=== PATIENT | female | born 1955 | race Caucasian/White ===

== ENCOUNTER → 2016-12-30 | Outpatient (CLI) | payer BC ==
--- NOTE | 2016-12-30 18:38 | WOMENS IMAGING REPORT ---
EXAM DESCRIPTION: BILAT SCREENING MAMMO W/CAD COMPLETED DATE/TIME: 12/30/2016 8:08 am REASON FOR STUDY: Z12.31, ROUTINE SCREENING MAMMO Z12.31 ENCNTR SCREEN MAMMOGRAM FOR MALIGNANT NEOP LASM OF VERA COMPARISON: Multiple since 2008 TECHNIQUE: Standard craniocaudal and mediolateral oblique views of each breast recorded using digita l acquisition. LIMITATIONS: None. FINDINGS: Findings present which are benign by mammographic criteria. No suspicious masses, calcifi cations or architectural distortion. Pertinent benign findings: Bilateral benign breast and skin calcifications, left breast benign intram ammary lymph nodes Read with the assistance of CAD. .[facility] - R2 [employer] Version 1.3 .[facility] - R2 Cen[employer] Version 1.3 .[facility] - R2 Cenova Version 2.4 .[facility] [place] R2 Cenova Version 2.4 .[facility] - R2 [employer] Version 9.2 Benign mammographic findings may include one or more of the following: Smooth masses, popcorn/rim/co arse calcifications, asymmetries, post-procedure changes, and lesions with long-standing stability. IMPRESSION: BENIGN MAMMOGRAPHIC FINDINGS. BIRADS 2 BREAST DENSITY: b. There are scattered areas of fibroglandular density. BIRAD: 2 BENIGN FINDING(S) RECOMMENDATION: ROUTINE SCREENING Please consider bilateral screening tomosynthesis in December 2017 COMMENT: The patient has been notified of the results by letter per MQSA requirements. Additional no tification policies are in place for contacting patient with suspicious or incomplete findings. Quality ID #[id number]: The [employer] recommends an annual screening mammogram for women aged 40 years or over. This facility utilizes a reminder system to ensure that all patients receive reminder letters, and/or direct phone calls for appointments. This includes reminders for routine scr eening mammograms, diagnostic mammograms, or other Breast Imaging Interventions when appropriate. Th is patient will be placed in the appropriate reminder system. The [employer] (ACR) has developed recommendations for screening MRI of the breast s in certain patient populations, to be used in conjunction with mammography. Breast MRI surveillanc e may be appropriate for women with more than 20% lifetime risk of developing breast cancer as deter mined by genetic testing, significant family history of the disease, or history of mantle radiation f or Hodgkins Disease. ACR Practice Guidelines 2008. TECHNICAL DOCUMENTATION: FINDING NUMBER: (1) ASSESSMENT: (1) JOB ID: [id number] [facility]- All Rights Reserved
== END ==
LOC: WI 09:48
PROVIDERS: ATTEND Specialist
DX: Z12.31 Encounter for screening mammogram for malignant neoplasm of breast (principal)
CPT/HCPCS: 77067; G0202

== ENCOUNTER 2017-05-23 06:41 | Emergency (ER) | payer BC ==
--- NOTE | 2017-05-23 07:00 | ER Document Report ---
ED GI/ - General Chief Complaint: Flank Pain Stated Complaint: FLANK PAIN Time Seen by Provider: 05/23/17 06:54 TRAVEL OUTSIDE OF THE [place] IN LAST 30 DAYS: No - HPI Notes: 05/23/17 07:00 62 years old female with a history of diabetes hypertension, presents today with left flank pain woke her up around 2:00 this morning. It was 10/10 at that time. Now it is 3/10. The pain was radiating towards the groin. Not associated with any nausea vomiting denies any hematuria or dysuria frequency urgency. Denies any constipation. Denies any fever chills or other constitutional symptoms. - Related Data Allergies/Adverse Reactions: No Known Allergies Allergy (Verified 05/23/17 06:41) Past Medical History - General Information source: Patient - Social History Smoking Status: Former Smoker Frequency of alcohol use: Rare Drug Abuse: None Lives with: Family Family History: Reviewed & Not Pertinent Patient has suicidal ideation: No - Past Medical History Cardiac Medical History: Reports: Hx Hypertension Pulmonary Medical History: Reports: None Denies: Hx Asthma, Hx Bronchitis, Hx COPD, Hx Pneumonia, Hx Intubation, Hx Respiratory Failure, Hx Sleep Apnea, Hx Tuberculosis, Other EENT Medical History: Reports: None Denies: Eyes, Ears, Nose, Throat, Other Neurological Medical History: Reports: None. Denies: Hx Cerebrovascular Accident, Hx Migraine, Hx Seizures, Other Endocrine Medical History: Reports: Hx Diabetes Mellitus Type 2. Denies: None, Hx Diabetes Mellitus Type 1, Hx Graves' Disease, Hx Hyperthyroidism, Hx Hypothyroidism, Other Renal/ Medical History: Reports: Other - Ovarian cancer 1992. Denies: None, Hx Ectopic , Hx End Stage Renal Disease, Hx Hemodialysis, Hx Hydrocele , Hx Kidney Stones, Hx Ovarian Cysts, Hx Peritoneal Dialysis, Hx Pelvic Inflammatory Disease, Hx Renal Insufficiency, Hx Varicocele Malignancy Medical History: Reports: Hx Ovarian Cancer, Hx Skin Cancer. Denies : None, Hx Bone Cancer, Hx Brain Cancer, Hx Breast Cancer, Hx Cervical Cancer, Hx Colorectal Cancer, Hx Leukemia, Hx Liver Cancer, Hx Lung Cancer, Hx Lymphoma , Hx Pancreatic Cancer, Hx Renal (Kidney) Cancer, Other GI Medical History: Reports: None. Denies: Hx Cirrhosis, Hx Crohn's Disease, Hx Diverticulitis, Hx Gastritis, Hx Gastroesophageal Reflux Disease, Hx Hepatitis, Hx Hiatal Hernia, Hx Irritable Bowel, Hx Liver Failure, Hx Pancreatitis, Hx Ulcer, Hx Ulcerative Colitis, Hx Colonoscopy, Hx Endoscopic Retrograde Cholangio, Hx Endoscopy, Other Musculoskeltal Medical History: Reports None Psychiatric Medical History: Reports: None Denies: Hx Anxiety, Hx Attention Deficit Hyperactivity Disorder, Hx Bipolar Disorder, Hx Borderline Personality Disorder, Hx Dementia, Hx Depression, Hx Obsessive Compulsive Disorder, Hx Personality Disorder, Hx Post Traumatic Stress Disorder, Hx Schizoaffective Disorder, Hx Schizophrenia, Other Past Surgical History: Reports: Hx Cholecystectomy, Hx Hysterectomy, Other - Oophorectomy Review of Systems - Review of Systems Constitutional: No symptoms reported. denies: See HPI, Chills, Diaphoresis, Fever, Malaise, Weakness, Other, Weight gain, Weight loss, Recent illness EENT: No symptoms reported. denies: See HPI, Eye pain, Eye discharge, Blurred vision, Tearing, Double vision, Ear pain, Ear discharge, Nose pain, Nose congestion, Nose discharge, Sinus pressure, Sinus discharge, Throat pain, Difficulty swallowing, Throat swelling, Mouth pain, Mouth swelling, Dental problem, Vertigo, Other Cardiovascular: No symptoms reported. denies: See HPI, Chest pain, Palpitations , Heart racing, Orthopnea, Dyspnea, Syncope, Dizziness, Lightheaded, Edema, Other, Paroxysmal Nocturnal Dysp Respiratory: No symptoms reported. denies: See HPI, Cough, Hurts to breathe, Hemoptysis, Short of breath, Sputum, Stridor, Wheezing, Other Gastrointestinal: See HPI Genitourinary: See HPI Female Genitourinary: No symptoms reported. denies: See HPI, Last menstrual period, , Post menopausal, Heavy/abnormal periods, Irregular period, Vaginal discharge, Vaginal bleeding, Vaginal odor, Painful intercourse, Other Neurological/Psychological: No symptoms reported. denies: See HPI, Confusion, Dementia, Depression, Hallucinations, Anxiety, Homicidal ideation, Sensory change, Weakness, Gait changes, Loss of power, Paralysis, Seizure, Lost consciousness, Headaches, Speech impairment, Numbness, Suicidal ideation, Tingling, Tremor, Other Physical Exam - Vital signs Vitals: Temp Pulse Resp BP Pulse Ox 98.1 F 83 18 134/80 H 95 05/23/17 06:42 05/23/17 06:42 05/23/17 06:42 05/23/17 06:42 05/23/17 06:42 - Notes Notes: General exam: Alert oriented 3, appears well, not in any acute distress, body habitus--- obesity ---. HEENT: Normocephalic atraumatic pupils were equal reactive to light extraocular muscles were within normal range. Neck is supple no JVD no lymphadenopathy. Oral mucosa-not erythematous, no lesions noted no tonsillar enlargement. Chest no lesions, nontraumatic, nontender. No deformity Lungs: Bilaterally clear breath sounds no rales or wheezing, no adventitial sounds, no dullness on percussion. Cardiovascular system: Normal S1-S2 no murmurs, no gallop. Regular rhythm. N peripheral edema over the lower extremities. Gastrointestinal: Left flank tenderness on palpation Normal appearance, positive bowel sounds in all 4 quadrants, no Hepatosplenomegaly, no obvious masses, no obvious abdominal bruit. No horseshoe dullness. Inguinal region: No masses or obvious inguinal hernia noted Genitourinary: Rectal exam: Nervous system: Alert oriented 3, no cranial nerve weakness, no focal neurological deficit noted. Sensation is intact over the lower extremities for pain and touch. Reflexes are 2+ over both patella. Upper extremities: No trauma as noted, normal range of motion for both shoulders, elbows and wrist. Lower extremity: No traumas or deformities noted, normal range of motion for flexion extension abduction abduction of both hip joints, Normal flexion and extension of knee joint. Normal range of motion for plantarflexion dorsiflexion and eversion inversion for both ankles. Skin: No erythema, no edema, no obvious lesions noted Course - Vital Signs Vital signs: Temp Pulse Resp BP Pulse Ox 98.1 F 83 18 134/80 H 95 05/23/17 06:42 05/23/17 06:42 05/23/17 06:42 05/23/17 06:42 05/23/17 06:42
[2017-05-23] MEDS ORDERED: KETOROLAC TROMETHAMINE INJ/PF 30 MG/1 ML SDV IV ONE (07:08)
[2017-05-23] MEDS ORDERED: NORMAL SALINE 1000 ML 1,000 ML IV ONE (07:09)
[2017-05-23] MEDS ORDERED: NORMAL SALINE 500 ML IV ONE (07:09)
[2017-05-23 07:19] LABS: HEMATOCRIT 39.6 % (36.0-47.0); HEMOGLOBIN 13.4 g/dL (12.0-15.5); HGB HCT DIFFERENCE 0.6; MEAN CORPUSCULAR HEMOGLOBIN 30.2 pg (27.0-33.4); MEAN CORPUSCULAR HGB CONC 33.8 g/dL (32.0-36.0); MEAN CORPUSCULAR VOLUME 89 fl (80-97); RED BLOOD COUNT 4.43 10^6/uL (3.72-5.28); RED CELL DISTRIBUTION WIDTH 12.9 % (11.5-14.0); WHITE BLOOD COUNT 14.2 10^3/uL (4.0-10.5)
[2017-05-23 07:42] LABS: ABSOLUTE EOSINOPHILS# (MANUAL) 0.1 10^3/uL (0.0-0.6); BAND NEUTROPHILS % (MANUAL) 1 % (3-5); BASOPHILS % (MANUAL) 1 % (0-2); EOSINOPHILS % (MANUAL) 1 % (0-6); LYMPHOCYTES % (MANUAL) 1 % (13-45); TOTAL CELLS COUNTED 100
[2017-05-23 07:43] LABS: RBC MORPHOLOGY COMMENT NORMO-CYTIC/CHROMIC
--- NOTE | 2017-05-23 08:25 | RADIOLOGY REPORT (SQ) ---
EXAM DESCRIPTION: CT LTD RENAL STONE PROTOCOL ON COMPLETED DATE/TIME: 05/23/2017 7:54 am REASON FOR STUDY: Flank pain rule out kidney stone COMPARISON: None. TECHNIQUE: CT scan of the abdomen and pelvis performed without intravenous or oral contrast. Images reviewed with lung, soft tissue, and bone windows. Reconstructed coronal and sagittal MPR images revi ewed. All images stored on PACS. All CT scanners at this facility use dose modulation, iterative reconstruction, and/or weight based d osing when appropriate to reduce radiation dose to as low as reasonably achievable (ALARA). [facility]: Dose Right [facility]: CareDose [facility]: Dose Right [facility]: Teradose 4D [facility]: Smart [employer] RADIATION DOSE: CT Rad equipment meets quality standard of care and radiation dose reduction techniq ues were employed. CTDIvol: 17.1 mGy. DLP: 931 mGy-cm.mGy. LIMITATIONS: None. FINDINGS: LOWER CHEST: No significant findings. No nodules or infiltrates. Linear scarring or subse gmental atelectasis is identified in the right lung base. NON-CONTRASTED LIVER, SPLEEN, ADRENALS: Evaluation limited by lack of IV contrast. No identified sign ificant masses. A small relative low density left adrenal nodule is identified which would suggest a benign etiology. PANCREAS: No masses. No peripancreatic inflammatory changes. GALLBLADDER: Status post cholecystectomy RIGHT KIDNEY AND URETER: No suspicious masses. Assessment limited by lack of IV contrast. No signif icant calcifications. No hydronephrosis or hydroureter. LEFT KIDNEY AND URETER: No suspicious masses. Assessment limited by lack of IV contrast. Tiny nonob structing renal calculi are identified. A tiny obstructing calculus is identified at the level of th e uteropelvic junction. There is some mild fullness of the left pelvocaliceal system. AORTA AND RETROPERITONEUM: No aneurysm. No retroperitoneal masses or adenopathy. BOWEL AND PERITONEAL CAVITY: No obvious masses or inflammatory changes. No free fluid. APPENDIX: Status post appendectomy PELVIS, BLADDER, AND ABDOMINAL WALL:No abnormal masses. No free fluid. A tiny calcific density is id entified in the bladder most likely representing a recently passed ureteric calculus. The possibilit y of a bladder calculus cannot be excluded. A small ventral hernia is identified just superior to th e umbilicus in the midline containing fat. BONES: No significant findings. OTHER: No other significant finding. IMPRESSION: Tiny nonobstructing left renal calculi. A tiny obstructing calculus is identified at th e level of the ureteropelvic junction on the left. A tiny calcific density is identified in the blad betito most likely representing a recently passed ureteric calculus although the possibility of a bladde r calculus cannot be excluded. Other findings as noted above COMMENT: Quality ID # [id number]: Final reports with documentation of one or more dose reduction techniques (e.g., Automated exposure control, adjustment of the mA and/or kV according to patient size, use of iterative reconstruction technique) TECHNICAL DOCUMENTATION: JOB ID: [id number] [employer]- All Rights Reserved
[2017-05-23 09:17] LABS: ALANINE AMINOTRANSFERASE 50 U/L (9-52); ALKALINE PHOSPHATASE 67 U/L (38-126); ANION GAP 16 (5-19); ASPARTATE AMINO TRANSFERASE 26 U/L (14-36); BILIRUBIN,DIRECT 0.4 mg/dL (0.0-0.4); BILIRUBIN,TOTAL 0.8 mg/dL (0.2-1.3); BLOOD UREA NITROGEN 18 mg/dL (7-20); CALCIUM 9.1 mg/dL (8.4-10.2); CARBON DIOXIDE 21 mmol/L (22-30); CHLORIDE 105 mmol/L (98-107); CREATININE RESULT 0.95 mg/dL (0.52-1.25); GLUCOSE 153 mg/dL (75-110); LIPASE 79.9 U/L (23-300); POTASSIUM 3.2 mmol/L (3.6-5.0); SODIUM 141.7 mmol/L (137-145); TOTAL PROTEIN 6.8 g/dL (6.3-8.2)
[2017-05-23 10:07] LABS: APPEARANCE,URINE CLOUDY; BILIRUBIN,URINE NEGATIVE (NEGATIVE); GLUCOSE, URINE NEGATIVE (NEGATIVE); KETONES,URINE NEGATIVE (NEGATIVE); LEUKOCYTE ESTERASE,URINE MODERATE (NEGATIVE); NITRITE,URINE POSITIVE (NEGATIVE); PROTEIN,URINE 30 mg/dL (NEGATIVE); URINE SPECIFIC GRAVITY 1.027; UROBILINOGEN,URINE NEGATIVE mg/dL (<2.0)
[2017-05-23 10:38] VITALS: BP 140/84
== END 2017-05-23 10:34 | disposition home or self-care (01) ==
LOC: ER 06:41
DX: N20.2 Calculus of kidney with calculus of ureter (principal); R10.9 Unspecified abdominal pain; I10 Essential (primary) hypertension; E11.9 Type 2 diabetes mellitus without complications; Z87.891 Personal history of nicotine dependence; Z90.49 Acquired absence of other specified parts of digestive tract; Z85.828 Personal history of other malignant neoplasm of skin; Z90.710 Acquired absence of both cervix and uterus
CPT/HCPCS: 99284; 96361; 96374; 36415; 83690; 85025; 80053; 81001; 76380; J1885; J7030; J7040

== ENCOUNTER 2017-12-09 07:18 | Emergency (ER) | payer BC ==
[2017-12-09] MEDS ORDERED: NORMAL SALINE 1000 ML 1,000 ML IV ONE ×2 (07:33→10:02)
[2017-12-09] MEDS ORDERED: MORPHINE SULFATE 10 MG/ML INJ IV ONE ×3 (07:50→12:42)
[2017-12-09] MEDS ORDERED: ONDANSETRON HCL INJ/PF 4 MG/2 ML SDV IV ONE (07:50)
[2017-12-09] MEDS ORDERED: ONDANSETRON 4 MG TAB.RAPDIS PO ONE (08:14)
[2017-12-09 08:23] LABS: ABSOLUTE BASOPHILS # (AUTO) 0.1 10^3/uL (0.0-0.2); ABSOLUTE EOSINOPHILS # (AUTO) 0.2 10^3/uL (0.0-0.6); ABSOLUTE LYMPHOCYTES (AUTO) 1.6 10^3/uL (0.5-4.7); ABSOLUTE MONOCYTES (AUTO) 0.4 10^3/uL (0.1-1.4); BASOPHILS % (AUTO) 1.1 % (0-2); EOSINOPHILS % (AUTO) 2.7 % (0-6); HEMATOCRIT 38.7 % (36.0-47.0); HEMOGLOBIN 13.3 g/dL (12.0-15.5); LYMPHOCYTES % (AUTO) 19.3 % (13-45); MEAN CORPUSCULAR HEMOGLOBIN 31.4 pg (27.0-33.4); MEAN CORPUSCULAR HGB CONC 34.5 g/dL (32.0-36.0); MEAN CORPUSCULAR VOLUME 91 fl (80-97); MONOCYTES % (AUTO) 4.3 % (3-13); PLATELET COUNT 282 10^3/uL (150-450); RED BLOOD COUNT 4.25 10^6/uL (3.72-5.28); RED CELL DISTRIBUTION WIDTH 13.4 % (11.5-14.0); SEGMENTED NEUTROPHILS % (AUTO) 72.6 % (42-78); TOTAL CELLS COUNTED % (AUTO) 100 %; WHITE BLOOD COUNT 8.3 10^3/uL (4.0-10.5)
[2017-12-09 08:47] LABS: APPEARANCE,URINE TURBID; BILIRUBIN,URINE NEGATIVE (NEGATIVE); CALCIUM OXALATE CRYSTALS,URINE MODERATE /HPF; COLOR,URINE YELLOW; GLUCOSE, URINE NEGATIVE (NEGATIVE); KETONES,URINE NEGATIVE (NEGATIVE); LEUKOCYTE ESTERASE,URINE MODERATE (NEGATIVE); NITRITE,URINE NEGATIVE (NEGATIVE); PROTEIN,URINE 100 mg/dL (NEGATIVE); URINE SPECIFIC GRAVITY 1.027
[2017-12-09] MEDS ORDERED: DIPHENHYDRAMINE HCL 50 MG/ML VIAL IV ONE (08:53)
[2017-12-09] MEDS ORDERED: METOCLOPRAMIDE HCL INJ/PF 10 MG/2 ML SDV IV ONE (08:53)
--- NOTE | 2017-12-09 08:59 | RADIOLOGY REPORT (SQ) ---
EXAM DESCRIPTION: CT LTD RENAL STONE PROTOCOL ON COMPLETED DATE/TIME: 12/09/2017 8:40 am REASON FOR STUDY: left flank COMPARISON: 05/23/2017 CT abdomen pelvis TECHNIQUE: CT scan of the abdomen and pelvis performed without intravenous or oral contrast. Images reviewed with lung, soft tissue, and bone windows. Reconstructed coronal and sagittal MPR images revi ewed. All images stored on PACS. All CT scanners at this facility use dose modulation, iterative reconstruction, and/or weight based d osing when appropriate to reduce radiation dose to as low as reasonably achievable (ALARA). [facility]: Dose Right [facility]: CareDose [facility]: Dose Right [facility]: Teradose 4D [facility]: Smart [employer] RADIATION DOSE: CT Rad equipment meets quality standard of care and radiation dose reduction techniq ues were employed. CTDIvol: 16.1 mGy. DLP: 869 mGy-cm.mGy. LIMITATIONS: None. FINDINGS: In the left mid third of the ureter, a 4 to 5 mm ureteral calculus is present causing mild left hydronephrosis and upper hydroureter. This left mid third ureteral stone is at the level of th e left L4 transverse process, best shown on coronal image 46 and axial image 44. Elsewhere in the left kidney, a less than 5 mm lower pole intrarenal nonobstructive calculus is prese nt. No left renal cysts or masses. No other left ureteral stones. LOWER CHEST: No significant findings. No nodules or infiltrates. NON-CONTRASTED LIVER, SPLEEN, ADRENALS: Evaluation limited by lack of IV contrast. No identified sign ificant masses. PANCREAS: No masses. No peripancreatic inflammatory changes. GALLBLADDER: Surgically absent. RIGHT KIDNEY AND URETER: No suspicious masses. Assessment limited by lack of IV contrast. No signif icant calcifications. No hydronephrosis or hydroureter. LEFT KIDNEY AND URETER: As above AORTA AND RETROPERITONEUM: No aneurysm. No retroperitoneal masses or adenopathy. BOWEL AND PERITONEAL CAVITY: No obvious masses or inflammatory changes. No free fluid. APPENDIX: Not identified. Patient states it is surgically absent. PELVIS, BLADDER, AND ABDOMINAL WALL:No bladder calculi. No free pelvic fluid. Post hysterectomy. T iny midline fatty ventral hernia superior to the umbilicus on sagittal image 61. BONES: No significant findings. OTHER: No other significant finding. IMPRESSION: 4 to 5 mm stone in the left mid third ureter with mild left hydronephrosis and upper hyd roureter COMMENT: Quality ID # [id number]: Final reports with documentation of one or more dose reduction techniques (e.g., Automated exposure control, adjustment of the mA and/or kV according to patient size, use of iterative reconstruction technique) TECHNICAL DOCUMENTATION: JOB ID: [id number] [employer]- All Rights Reserved Reading location - IP/workstation name: [facility]
[2017-12-09] MEDS ORDERED: KETOROLAC TROMETHAMINE INJ/PF 30 MG/1 ML SDV IV ONE (09:04)
--- NOTE | 2017-12-09 09:12 | ER Document Report ---
ED General - General Chief Complaint: Flank Pain Stated Complaint: BACK PAIN Time Seen by Provider: 12/09/17 07:32 TRAVEL OUTSIDE OF THE [place] IN LAST 30 DAYS: No - HPI Patient complains to provider of: Left flank pain nausea vomiting Notes: Patient coming in with flank pain nausea vomiting occurring earlier this morning. Patient states unable to sleep unable to get into a comfortable position. Patient denies any trauma denies any fevers chills multiple bouts of nausea vomiting. Patient states history kidney stones in the past. Also states history of hypertension and diabetes. - Related Data Allergies/Adverse Reactions: No Known Allergies Allergy (Verified 12/09/17 08:21) Past Medical History - Social History Smoking Status: Never Smoker Frequency of alcohol use: None Drug Abuse: None Family History: Reviewed & Not Pertinent Patient has suicidal ideation: No Patient has homicidal ideation: No - Past Medical History Cardiac Medical History: Reports: Hx Hypertension Pulmonary Medical History: Denies: Hx Asthma, Hx Bronchitis, Hx COPD, Hx Pneumonia, Hx Intubation, Hx Respiratory Failure, Hx Sleep Apnea, Hx Tuberculosis Neurological Medical History: Denies: Hx Cerebrovascular Accident, Hx Migraine, Hx Seizures Endocrine Medical History: Reports: Hx Diabetes Mellitus Type 2. Denies: Hx Diabetes Mellitus Type 1, Hx Graves' Disease, Hx Hyperthyroidism, Hx Hypothyroidism Renal/ Medical History: Denies: Hx Ectopic , Hx End Stage Renal Disease, Hx Hemodialysis, Hx Hydrocele, Hx Kidney Stones, Hx Ovarian Cysts, Hx Peritoneal Dialysis, Hx Pelvic Inflammatory Disease, Hx Renal Insufficiency, Hx Varicocele Malignancy Medical History: Reports: Hx Ovarian Cancer, Hx Skin Cancer. Denies : Hx Bone Cancer, Hx Brain Cancer, Hx Breast Cancer, Hx Cervical Cancer, Hx Colorectal Cancer, Hx Leukemia, Hx Liver Cancer, Hx Lung Cancer, Hx Lymphoma, Hx Pancreatic Cancer, Hx Renal (Kidney) Cancer GI Medical History: Denies: Hx Cirrhosis, Hx Crohn's Disease, Hx Diverticulitis , Hx Gastritis, Hx Gastroesophageal Reflux Disease, Hx Hepatitis, Hx Hiatal Hernia, Hx Irritable Bowel, Hx Liver Failure, Hx Pancreatitis, Hx Ulcer, Hx Ulcerative Colitis, Hx Colonoscopy, Hx Endoscopic Retrograde Cholangio, Hx Endoscopy Psychiatric Medical History: Denies: Hx Anxiety, Hx Attention Deficit Hyperactivity Disorder, Hx Bipolar Disorder, Hx Borderline Personality Disorder, Hx Dementia, Hx Depression, Hx Obsessive Compulsive Disorder, Hx Personality Disorder, Hx Post Traumatic Stress Disorder, Hx Schizoaffective Disorder, Hx Schizophrenia Infectious Medical History: Denies: Hx Hepatitis Past Surgical History: Reports: Hx Abdominal Surgery, Hx Appendectomy, Hx Cholecystectomy, Hx Hysterectomy, Hx Tubal Ligation, Other - Oophorectomy Review of Systems - Review of Systems Constitutional: No symptoms reported EENT: No symptoms reported Cardiovascular: No symptoms reported Respiratory: No symptoms reported Gastrointestinal: No symptoms reported Genitourinary: Flank pain Female Genitourinary: No symptoms reported Musculoskeletal: No symptoms reported Skin: No symptoms reported Hematologic/Lymphatic: No symptoms reported Neurological/Psychological: No symptoms reported Physical Exam - Vital signs Vitals: Temp Pulse Resp BP Pulse Ox 98.1 F 84 16 139/81 H 98 12/09/17 07:22 12/09/17 07:22 12/09/17 07:22 12/09/17 07:22 12/09/17 07:22 Interpretation: Normal - General General appearance: Appears well, Alert - HEENT Head: Normocephalic, Atraumatic Eyes: Normal Pupils: PERRL - Respiratory Respiratory status: No respiratory distress Chest status: Nontender Breath sounds: Normal Chest palpation: Normal - Cardiovascular Rhythm: Regular Heart sounds: Normal auscultation Murmur: No - Abdominal Inspection: Morbidly Obese Distension: No distension Bowel sounds: Normal Tenderness: Nontender Organomegaly: No organomegaly - Back Back: Normal, Nontender, CVA tenderness - Left - Extremities General upper extremity: Normal inspection, Nontender, Normal color, Normal ROM , Normal temperature General lower extremity: Normal inspection, Nontender, Normal color, Normal ROM , Normal temperature, Normal weight bearing. No: Supriya's sign - Neurological Neuro grossly intact: Yes Cognition: Normal Orientation: AAOx4 Jose Coma Scale Eye Opening: Spontaneous Jose Coma Scale Verbal: Oriented [place] Coma Scale Motor: Obeys Commands Jose Coma Scale Total: 15 Speech: Normal Motor strength normal: LUE, RUE, LLE, RLE Sensory: Normal - Psychological Associated symptoms: Normal affect, Normal mood - Skin Skin Temperature: Warm Skin Moisture: Dry Skin Color: Normal Course - Re-evaluation Re-evalutation: 12/09/17 12:[address] scan shows obstructing 5 mm stone causing hydroureter or hydronephrosis. Patient's urinalysis initially does show possible signs of infection however is heavily contaminated with 83 squamous cells. We did perform straight cath urine was then returned nitrates positive leukocyte esterase positive with 3+ bacteria. Still concern for possible infection because of obstructing stone did discuss with urology at [facility] discuss with a Mr. Sy MOORE for Dr Gar. States that patient need to be transferred via EMS to the ER or since the patient currently remains stable she can go by POV to their office more likely they will set the patient up for an outpatient procedure this afternoon. I discussed with the patient patient chose the option to go to the urologist office. Patient will be given Zofran also was given IM injection of Rocephin. Patient agrees with going POV to the urologist office for evaluation and set up of more likely a outpatient stent placement later today. Understands risks and benefits. 12/09/17 15:11 - Vital Signs Vital signs: Temp Pulse Resp BP Pulse Ox 100.0 F 109 H 18 101/78 100 12/09/17 13:43 12/09/17 13:43 12/09/17 13:43 12/09/17 13:43 12/09/17 13:43 - Laboratory Result Diagrams: 12/09/17 08:10 12/09/17 09:23 Laboratory results interpreted by me: 12/09/17 12/09/17 12/09/17 08:00 09:23 10:25 BUN 22 H Est GFR (Non-Af Amer) 57 L Glucose 208 H AST 48 H Urine Protein 100 H 30 H Urine Blood LARGE H LARGE H Urine Nitrite POSITIVE H Urine Urobilinogen 2.0 H Ur Leukocyte Esterase MODERATE H SMALL H Discharge - Discharge Clinical Impression: Obstructive uropathy Urinary tract infection Qualifiers: Urinary tract infection type: site unspecified Hematuria presence: without hematuria Qualified Code(s): N39.0 - Urinary tract infection, site not specified Condition: Good [facility]position: [facility] Instructions: Kidney Stone ([facility]), Urinary Tract Infection ([facility]) Additional Instructions: Your evaluation today shows a left-sided 5 mm kidney stones causing obstruction of your in the setting of signs of infection in your urine. I have discussed your case with the PA Sy Kelly for Dr Gar urology at [facility]. Please proceed to your office. Please do not eat do not drink anything as that you are more likely have a surgical procedure this afternoon. Address for the office is: [facility]: [address], [place] [id number] Again do not eat/drink anything prior to arrival Referrals: YSABEL FREY MD [Primary Care Provider] - Follow up as needed
[2017-12-09 09:58] LABS: ALANINE AMINOTRANSFERASE 51 U/L (9-52); ALBUMIN 4.2 g/dL (3.5-5.0); ALKALINE PHOSPHATASE 71 U/L (38-126); ANION GAP 12 (5-19); ASPARTATE AMINO TRANSFERASE 48 U/L (14-36); BILIRUBIN,DIRECT 0.3 mg/dL (0.0-0.4); BILIRUBIN,TOTAL 0.7 mg/dL (0.2-1.3); BLOOD UREA NITROGEN 22 mg/dL (7-20); CALCIUM 8.8 mg/dL (8.4-10.2); CARBON DIOXIDE 23 mmol/L (22-30); CHLORIDE 104 mmol/L (98-107); GLUCOSE 208 mg/dL (75-110); LIPASE 98.1 U/L (23-300); POTASSIUM 4.6 mmol/L (3.6-5.0); TOTAL PROTEIN 7.4 g/dL (6.3-8.2)
[2017-12-09 11:16] LABS: APPEARANCE,URINE CLOUDY; BILIRUBIN,URINE NEGATIVE (NEGATIVE); COLOR,URINE YELLOW; GLUCOSE, URINE NEGATIVE (NEGATIVE); KETONES,URINE NEGATIVE (NEGATIVE); LEUKOCYTE ESTERASE,URINE SMALL (NEGATIVE); NITRITE,URINE POSITIVE (NEGATIVE); PROTEIN,URINE 30 mg/dL (NEGATIVE); URINE SPECIFIC GRAVITY 1.024; UROBILINOGEN,URINE NEGATIVE mg/dL (<2.0)
[2017-12-09] MEDS ORDERED: CEFTRIAXONE 1 GM/D5W RTU 1 GM/50 ML RTUPB IV ONE (11:40)
[2017-12-09] MEDS ORDERED: LIDOCAINE 1% INJ-PF (10 MG/ML) 30 ML SDV INFIL ONE (12:25)
[2017-12-09] MEDS ORDERED: CEFTRIAXONE INJ 1000 MG VIAL IM ONE (12:25)
[2017-12-09] MEDS ORDERED: ONDANSETRON ODT 4 MG TAB (6 TAB/ER DISP) PO PRN (12:36)
[2017-12-09] MEDS ORDERED: HYDROCODONE/ACETAMINOPHEN 5-325 MG (6 TAB/ER DISP) PO PRN (12:38)
[2017-12-09 14:00] VITALS: BP 101/78
== END 2017-12-09 13:58 | disposition short-term general hospital (02) ==
LOC: ER 07:18
DX: N39.0 Urinary tract infection, site not specified (principal); N13.9 Obstructive and reflux uropathy, unspecified; R11.2 Nausea with vomiting, unspecified; R10.9 Unspecified abdominal pain; M54.9 Dorsalgia, unspecified; I10 Essential (primary) hypertension; E11.9 Type 2 diabetes mellitus without complications; Z90.49 Acquired absence of other specified parts of digestive tract; Z90.710 Acquired absence of both cervix and uterus
CPT/HCPCS: 96376; 99285; 96372; 96361; 51701; 96374; 96375; 36415; 87040; 87086; 83690; 85025; 87077; 80053; 81001; 87186; 76380; J1200; S0119; J3490; J1885; J2765; J2270; J0696; J7030

== ENCOUNTER → 2018-01-27 | Outpatient (CLI) | payer BC ==
--- NOTE | 2018-01-27 11:02 | WOMENS IMAGING REPORT ---
EXAM DESCRIPTION: BILAT SCREENING MAMMO W/CAD COMPLETED DATE/TIME: 01/27/2018 9:23 am REASON FOR STUDY: Z12.31 ENCOUNTER FOR SCREENING MAMMOGRAM FOR MALIGNANT NEOPLASM OF BREAST Z12.31 ENCNTR SCREEN MAMMOGRAM FOR MALIGNANT NEOPLASM OF VERA COMPARISON: [id number] TECHNIQUE: Standard craniocaudal and mediolateral oblique views of each breast recorded using digita l acquisition. LIMITATIONS: None. FINDINGS: No masses, calcifications or architectural distortion. No areas of suspicion. Read with the assistance of CAD. .[facility] - R2 Cenova Version 1.3 .[facility] - R2 Cenova Version 1.3 .[facility] - R2 Cenova Version 2.4 .[facility] - R2 Cenova Version 2.4 .[facility] - R2 Shells Inspector Version 9.2 IMPRESSION: NORMAL MAMMOGRAM. BIRADS 1. BREAST DENSITY: b. There are scattered areas of fibroglandular density. BIRAD: 1 NEGATIVE RECOMMENDATION: ROUTINE SCREENING COMMENT: The patient has been notified of the results by letter per MQSA requirements. Additional no tification policies are in place for contacting patient with suspicious or incomplete findings. Quality ID #[id number]: The [employer] recommends an annual screening mammogram for women aged 40 years or over. This facility utilizes a reminder system to ensure that all patients receive reminder letters, and/or direct phone calls for appointments. This includes reminders for routine scr eening mammograms, diagnostic mammograms, or other Breast Imaging Interventions when appropriate. Th is patient will be placed in the appropriate reminder system. The [employer] (ACR) has developed recommendations for screening MRI of the breast s in certain patient populations, to be used in conjunction with mammography. Breast MRI surveillanc e may be appropriate for women with more than 20% lifetime risk of developing breast cancer as deter mined by genetic testing, significant family history of the disease, or history of mantle radiation f or Hodgkins Disease. ACR Practice Guidelines 2008. TECHNICAL DOCUMENTATION: FINDING NUMBER: (1) ASSESSMENT: (1) JOB ID: [id number] [employer]- All Rights Reserved Reading location - IP/workstation name: [email or web address]
== END ==
LOC: WI 08:58
PROVIDERS: ATTEND Specialist
DX: Z12.31 Encounter for screening mammogram for malignant neoplasm of breast (principal)
CPT/HCPCS: 77067

== ENCOUNTER → 2019-02-01 | Outpatient (CLI) | payer BC ==
--- NOTE | 2019-02-01 13:55 | WOMENS IMAGING REPORT ---
EXAM DESCRIPTION: 3D SCREENING MAMMO BILAT COMPLETED DATE/TIME: 02/01/2019 11:32 am REASON FOR STUDY: Z12.31 ENCOUNTER FOR SCREENING MAMMOGRAM FOR MALIGNANT NEOPLASM OF BREAST Z12.31 ENCNTR SCREEN MAMMOGRAM FOR MALIGNANT NEOPLASM OF VERA COMPARISON: [id number] EXAM PARAMETERS: Views: Standard craniocaudal and mediolateral oblique views of each breast recorded using digital acquisition and breast tomosynthesis. Read with the assistance of CAD. .[facility] - R2 Materials Handling Coordinator Version 9.2 LIMITATIONS: None. FINDINGS: No suspicious masses, suspicious calcifications or architectural distortion. No areas of c oncern. IMPRESSION: NEGATIVE MAMMOGRAM. BIRADS 1. BREAST DENSITY: b. There are scattered areas of fibroglandular density. BIRAD: ASSESSMENT: 1 NEGATIVE RECOMMENDATION: ROUTINE SCREENING COMMENT: The patient has been notified of the results by letter per MQSA requirements. Additional no tification policies are in place for contacting patient with suspicious or incomplete findings. Quality ID #[id number]: The [employer] recommends an annual screening mammogram for women aged 40 years or over. This facility utilizes a reminder system to ensure that all patients receive reminder letters, and/or direct phone calls for appointments. This includes reminders for routine scr eening mammograms, diagnostic mammograms, or other Breast Imaging Interventions when appropriate. Th is patient will be placed in the appropriate reminder system. TECHNICAL DOCUMENTATION: FINDING NUMBER: (1) ASSESSMENT: (1) JOB ID: [id number] [employer]- All Rights Reserved Reading location - IP/workstation name: [email or web address]
== END ==
LOC: WI 10:30
PROVIDERS: ATTEND Specialist
DX: Z12.31 Encounter for screening mammogram for malignant neoplasm of breast (principal)
CPT/HCPCS: 77063; 77067

== ENCOUNTER 2020-01-16 19:00 | Inpatient (IN) | payer BC ==
[2020-01-16] MEDS ORDERED: METOCLOPRAMIDE HCL INJ/PF 10 MG/2 ML SDV IV ONE (19:59)
[2020-01-16] MEDS ORDERED: NORMAL SALINE 1000 ML 1,000 ML IV ONE (19:59)
--- NOTE | 2020-01-16 20:09 | ER Document Report ---
ED GI/ - General Chief Complaint: Vomiting Stated Complaint: VOMITING Time Seen by Provider: 01/16/20 19:42 Mode of Arrival: Ambulatory Information source: Patient Notes: Patient is a 64-year-old female comes emergency room complaining of vomiting. Patient states that her original problem started approximately 2 months ago when he started adjusting medications for her diabetes her cholesterol and hypertension. Patient states she has been nauseated at those times they felt that it was due to the medication so they adjusted her metformin and other medications but she still is having days of being run down and vomiting. She also states that while they were given his work-up they found out that she had a urinary tract infection that she states she had no symptoms for and was placed on Cipro. Patient states she came off Cipro this past Friday and had seen her primary care on the previous Friday but they did not recheck her urine because she was still on antibiotics. She states that today she was unable to get out of bed until 10 minutes before coming here because of fatigue she also states that she was placed on potassium supplement because her potassium was low last week patient states she has been unable to take it because of her nausea. She does state that she has thrown up some type of a bile yellowish in color. She is unable to keep anything down and throws it back up. She originally had some diarrhea but that seems to have subsided. Patient states that her sugars are now running between 130 and 170 whereas before they made the adjustments with her Metformin she was in the greater than 200 range. Also note patient has had multiple abdominal surgeries to include a cholecystectomy, appendectomy and a total vaginal hysterectomy. Patient denies having any abdominal pain during all this it is just the simple fact she becomes nauseated and vomits. She has been placed on Zofran ODT and states that has not been working. TRAVEL OUTSIDE OF THE [place] IN LAST 30 DAYS: No - HPI Patient complains to provider of: No: Abdominal pain, Flank pain, Urinary retention, Vaginal discharge, Vaginal pain Onset: Other - 2 months Timing/Duration: Gradual, Persistent, Worse Quality of pain: No pain Pain Level: Denies Context: denies: Bad food, Out of the country travel, , Recent trauma, Other Location: No: Chest pain, Epigastric, LUQ, LLQ, RUQ, RLQ, Left flank, Right flank, Low back, Suprapubic, Vaginal, Vulvar Vaginal bleeding (Compared to normal period): None - Related Data Allergies/Adverse Reactions: No Known Allergies Allergy (Verified 12/09/17 08:21) Past Medical History - General Information source: Patient - Social History Smoking Status: Never Smoker Cigarette use (# per day): No Chew tobacco use (# tins/day): No Smoking Education Provided: No Frequency of alcohol use: None Drug Abuse: None Lives with: Family Family History: Reviewed & Not Pertinent - Past Medical History Cardiac Medical History: Reports: Hx Hypertension Pulmonary Medical History: Denies: Hx Asthma, Hx Bronchitis, Hx COPD, Hx Pneumonia, Hx Intubation, Hx Respiratory Failure, Hx Sleep Apnea, Hx Tuberculosis Neurological Medical History: Denies: Hx Cerebrovascular Accident, Hx Migraine, Hx Seizures Endocrine Medical History: Reports: Hx Diabetes Mellitus Type 2. Denies: Hx Diabetes Mellitus Type 1, Hx Graves' Disease, Hx Hyperthyroidism, Hx Hypothyroidism Renal/ Medical History: Denies: Hx Ectopic , Hx End Stage Renal Disease, Hx Hemodialysis, Hx Hydrocele, Hx Kidney Stones, Hx Ovarian Cysts, Hx Peritoneal Dialysis, Hx Pelvic Inflammatory Disease, Hx Renal Insufficiency, Hx Varicocele Malignancy Medical History: Reports: Hx Ovarian Cancer, Hx Skin Cancer. Denies: Hx Bone Cancer, Hx Brain Cancer, Hx Breast Cancer, Hx Cervical Cancer, Hx Colorectal Cancer, Hx Leukemia, Hx Liver Cancer, Hx Lung Cancer, Hx Lymphoma, Hx Pancreatic Cancer, Hx Renal (Kidney) Cancer GI Medical History: Denies: Hx Cirrhosis, Hx Crohn's Disease, Hx Diverticulitis, Hx Gastritis, Hx Gastroesophageal Reflux Disease, Hx Hepatitis, Hx Hiatal Hernia, Hx Irritable Bowel, Hx Liver Failure, Hx Pancreatitis, Hx Ulcer, Hx Ulcerative Colitis, Hx Colonoscopy, Hx Endoscopic Retrograde Cholangio, Hx Endoscopy Psychiatric Medical History: Denies: Hx Anxiety, Hx Attention Deficit Hyperactivity Disorder, Hx Bipolar Disorder, Hx Borderline Personality Disorder, Hx Dementia, Hx Depression, Hx Obsessive Compulsive Disorder, Hx Personality Disorder, Hx Post Traumatic Stress Disorder, Hx Schizoaffective Disorder, Hx Schizophrenia Infectious Medical History: Denies: Hx Hepatitis Past Surgical History: Reports: Hx Abdominal Surgery, Hx Appendectomy, Hx Cholecystectomy, Hx Hysterectomy, Hx Tubal Ligation, Other - Oophorectomy Review of Systems - Review of Systems Constitutional: No symptoms reported EENT: No symptoms reported Cardiovascular: No symptoms reported Respiratory: No symptoms reported Gastrointestinal: Nausea, Vomiting. denies: Abdomen distended, Abdominal pain, Diarrhea Genitourinary: No symptoms reported Female Genitourinary: No symptoms reported Musculoskeletal: No symptoms reported Skin: No symptoms reported Hematologic/Lymphatic: No symptoms reported Neurological/Psychological: No symptoms reported -: Yes All other systems reviewed and negative Physical Exam - Vital signs Vitals: Temp Pulse Resp BP Pulse Ox 98.1 F 80 20 141/90 H 98 01/16/20 20:05 01/16/20 20:05 01/16/20 20:05 01/16/20 20:05 01/16/20 20:05 - Notes Notes: PHYSICAL EXAMINATION: GENERAL: Well-appearing, well-nourished and in no acute distress. HEAD: Atraumatic, normocephalic. EYES: Pupils equal round and reactive to light, extraocular movements intact, conjunctiva are normal. ENT: Nares patent, oropharynx clear without exudates. Moist mucous membranes. NECK: Normal range of motion, supple without lymphadenopathy LUNGS: Breath sounds clear to auscultation bilaterally and equal. No wheezes rales or rhonchi. HEART: Regular rate and rhythm without murmurs ABDOMEN: Examination patient's abdomen shows bowel sounds present all 4 quads. She is nontender to palpation in all quadrants. Female : deferred Musculoskeletal: Normal range of motion, no pitting or edema. No cyanosis. NEUROLOGICAL: Normal speech, normal gait. Normal sensory, motor exams PSYCH: Normal mood, normal affect. SKIN: Warm, Dry, normal turgor, no rashes or lesions noted. Course - Re-evaluation Re-evalutation: 01/16/20 23:02 Patient's lab came back abnormal with acute renal failure being the most likely cause of her fatigue. She had a creatinine of 12.4 and a BUN of 73. Patient still has not urinated for us yet so we do not have those results back I talk to Dr. Leahy who is covering for Dr. Beasley and he is going to go ahead and put her in IMCU. - Vital Signs Vital signs: Temp Pulse Resp BP Pulse Ox 98.1 F 72 14 140/73 H 99 01/17/20 00:43 01/17/20 00:43 01/17/20 00:43 01/17/20 00:43 08/03/20 00:43 - Laboratory Result Diagrams: 01/16/20 21:50 01/16/20 21:50 Laboratory results interpreted by me: 01/16/20 01/16/20 21:50 22:35 Sodium 135.5 L Carbon Dioxide 16 L BUN 73 H Creatinine 12.44 H Est GFR ( Amer) 4 L Est GFR (MDRD) Non-Af 3 L Glucose 146 H Calcium 8.0 L AST 37 H Urine Protein 30 H Urine Blood SMALL H Ur Leukocyte Esterase LARGE H Discharge - Discharge Clinical Impression: Acute renal failure Qualifiers: Acute renal failure type: unspecified Qualified Code(s): N17.9 - Acute kidney failure, unspecified Vomiting Qualifiers: Vomiting type: unspecified Vomiting Intractability: non-intractable Nausea presence: with nausea Qualified Code(s): R11.2 - Nausea with vomiting, unspecified Condition: Stable Disposition: ADMITTED INPATIENT Admitting Provider: Beasley Unit Admitted: [facility]
[2020-01-16 22:11] LABS: ABSOLUTE BASOPHILS # (AUTO) 0.1 10^3/uL (0.0-0.2); ABSOLUTE EOSINOPHILS # (AUTO) 0.1 10^3/uL (0.0-0.6); ABSOLUTE LYMPHOCYTES (AUTO) 1.7 10^3/uL (0.5-4.7); ABSOLUTE MONOCYTES (AUTO) 0.5 10^3/uL (0.1-1.4); ABSOLUTE NEUT (AUTO) 6.1 10^3/uL (1.7-8.2); BASOPHILS % (AUTO) 1.3 % (0-2); EOSINOPHILS % (AUTO) 1.7 % (0-6); HEMATOCRIT 39.8 % (36.0-47.0); HEMOGLOBIN 13.5 g/dL (12.0-15.5); LYMPHOCYTES % (AUTO) 20.1 % (13-45); MEAN CORPUSCULAR HEMOGLOBIN 31.5 pg (27.0-33.4); MEAN CORPUSCULAR HGB CONC 33.8 g/dL (32.0-36.0); MEAN CORPUSCULAR VOLUME 93 fl (80-97); MONOCYTES % (AUTO) 5.7 % (3-13); PLATELET COUNT 220 10^3/uL (150-450); RED BLOOD COUNT 4.28 10^6/uL (3.72-5.28); RED CELL DISTRIBUTION WIDTH 13.3 % (11.5-14.0); SEGMENTED NEUTROPHILS % (AUTO) 71.2 % (42-78); TOTAL CELLS COUNTED % (AUTO) 100 %; WHITE BLOOD COUNT 8.5 10^3/uL (4.0-10.5)
[2020-01-16 22:34] LABS: ALBUMIN 4.1 g/dL (3.5-5.0); ALKALINE PHOSPHATASE 58 U/L (38-126); ANION GAP 19 (5-19); ASPARTATE AMINO TRANSFERASE 37 U/L (14-36); BILIRUBIN,DIRECT 0.2 mg/dL (0.0-0.4); BILIRUBIN,TOTAL 1.1 mg/dL (0.2-1.3); BLOOD UREA NITROGEN 73 mg/dL (7-20); CARBON DIOXIDE 16 mmol/L (22-30); CHLORIDE 101 mmol/L (98-107); GLUCOSE 146 mg/dL (75-110); POTASSIUM 4.2 mmol/L (3.6-5.0); TOTAL PROTEIN 7.1 g/dL (6.3-8.2)
[2020-01-16] MEDS ORDERED: NORMAL SALINE 1000 ML 1,000 ML IV PRN (22:58)
[2020-01-16 23:10] LABS: APPEARANCE,URINE CLOUDY; BILIRUBIN,URINE NEGATIVE (NEGATIVE); COLOR,URINE YELLOW; GLUCOSE, URINE NEGATIVE (NEGATIVE); KETONES,URINE NEGATIVE (NEGATIVE); LEUKOCYTE ESTERASE,URINE LARGE (NEGATIVE); NITRITE,URINE NEGATIVE (NEGATIVE); PROTEIN,URINE 30 mg/dL (NEGATIVE); URINE SPECIFIC GRAVITY 1.009; UROBILINOGEN,URINE NEGATIVE mg/dL (<2.0)
[2020-01-17] MEDS ORDERED: NORMAL SALINE 1000 ML 1,000 ML IV PRN (02:08)
[2020-01-17] MEDS ORDERED: DEXTROSE 40% GEL 15 GM TUBE PO PRN ×2 (05:55)
[2020-01-17] MEDS ORDERED: GLUCAGON,HUMAN RECOMB 1 MG INJ IM PRN (05:55)
[2020-01-17] MEDS ORDERED: DEXTROSE 50%-WATER 25 GM/50 ML DISP.SYRIN IV PRN ×2 (05:55)
--- NOTE | 2020-01-17 08:52 | RADIOLOGY REPORT (SQ) ---
EXAM DESCRIPTION: CT ABD/PELVIS NO ORAL OR IV IMAGES COMPLETED DATE/TIME: 01/17/2020 7:53 am REASON FOR STUDY: arf COMPARISON: 05/23/2017 TECHNIQUE: CT scan of the abdomen and pelvis performed without intravenous or oral contrast. Images reviewed with lung, soft tissue, and bone windows. Reconstructed coronal and sagittal MPR images revi ewed. All images stored on PACS. All CT scanners at this facility use dose modulation, iterative reconstruction, and/or weight based d osing when appropriate to reduce radiation dose to as low as reasonably achievable (ALARA). [facility]: Dose Right [facility]: CareDose [facility]: Dose Right [facility]: Teradose 4D [facility]: Smart Technologies RADIATION DOSE: CT Rad equipment meets quality standard of care and radiation dose reduction techniq ues were employed. CTDIvol: 14.4 mGy. DLP: 745 mGy-cm.mGy. LIMITATIONS: None. FINDINGS: LOWER CHEST: Minimal atelectasis in the right base. NON-CONTRASTED LIVER, SPLEEN, ADRENALS: The liver and spleen are stable in appearance no focal lesion s. There is hepatomegaly. Liver measures just under 20 cm in cranial caudal dimensions. Stable sma ll left adrenal lesion consistent with adenoma. PANCREAS: No masses. No peripancreatic inflammatory changes. GALLBLADDER: Surgically absent. RIGHT KIDNEY AND URETER: There is mild right perinephric stranding. No significant calcifications. No hydronephrosis or hydroureter. LEFT KIDNEY AND URETER: There is mild left perinephric stranding. Small 2 to [address] ones in the left kidney. No hydronephrosis or hydroureter. AORTA AND RETROPERITONEUM: No aneurysm. No retroperitoneal masses or adenopathy. BOWEL AND PERITONEAL CAVITY: No obvious masses or inflammatory changes. No free fluid. APPENDIX: Surgically absent. PELVIS, BLADDER, AND ABDOMINAL WALL:No abnormal masses. No free fluid. Bladder normal. BONES: No significant findings. OTHER: No other significant finding. IMPRESSION: Nonspecific bilateral perinephric stranding. Any clinical symptoms of pyelonephritis? No hydronephrosis. Small nonobstructing left renal calculi. COMMENT: Quality ID # [id number]: Final reports with documentation of one or more dose reduction techniques (e.g., Automated exposure control, adjustment of the mA and/or kV according to patient size, use of iterative reconstruction technique) TECHNICAL DOCUMENTATION: JOB ID: [id number] [employer]- All Rights Reserved Reading location - IP/workstation name: [email or web address]
[2020-01-17] MEDS: INSULIN LISPRO 100 UNIT/ML 3 ML VIAL SUBCUT SCH ×4 (09:45→21:39)
--- NOTE | 2020-01-17 09:46 | PDOC H&P ---
History of Present Illness Admission Date/PCP: 01/16/20 23:19 YSABEL FREY MD Patient complains of: Nausea vomiting and feeling tired History of Present Illness: AGUILAR DU is a 64 year old female Is a 64-year-old female's with a history of the hypertension hyperlipidemia type 2 diabetes and a history of the kidney stone status post stent placement in the past came to the emergency department with a complaint of "not feeling well nausea vomiting and feeling tired and patient's BUN was 73 creatinine was 12.4 Patient have a blood work done last week in the office with the BUN is 15 and creatinine is about 1.0 Also have a recently urinary tract infection started on Cipro Patient's otherwise A1c is 7.4 and other blood work was all stable Denied any abdominal pain History of the ovarian cancer status post surgery so many years back Patient seen by the urology in [place] last year for the kidney stone status post stent placement in the past currently no stent Patient's admitting in the hospital start on IV fluid currently feels better patient CT scan of the abdomen and pelvis suggest questionable pyelonephritis Past Medical History Cardiac Medical History: Reports: Hypertension Pulmonary Medical History: Denies: Asthma, Bronchitis, Chronic Obstructive Pulmonary Disease (COPD), Intubation, Pneumonia, Respiratory Failure, Sleep Apnea, Tuberculosis Neurological Medical History: Denies: Migraine, Seizures Endocrine Medical History: Reports: Diabetes Mellitus Type 2 Denies: Diabetes Mellitus Type 1, Hyperthyroidism, Hypothyroidism Renal/ Medical History: Denies: End Stage Renal Disease Malignancy Medical History: Reports: Ovarian Cancer, Skin Cancer Denies: Bone Cancer, Brain Cancer, Breast Cancer, Cervical Cancer, Colorectal Cancer, Leukemia, Liver Cancer, Lung Cancer, Lymphoma, Pancreatic Cancer, Renal (Kidney) Cancer GI Medical History: Denies: Cirrhosis, Crohn's Disease, Diverticulitis, Gastroesophageal Reflux Disease, Hepatitis, Hiatal Hernia, Ulcerative Colitis Psychiatric Medical History: Denies: Attention Deficit Hyperactivity Disorder, Bipolar Disorder, Dementia, Depression, Personality Disorder, Post Traumatic Stress Disorder, Schizoaffective Disorder Past Surgical History Past Surgical History: Reports: Appendectomy, Cholecystectomy, Hysterectomy, Tubal Ligation, Other - Oophorectomy Social History Information Source: Patient Lives with: Family Smoking Status: Former Smoker Electronic Cigarette use?: No Frequency of Alcohol Use: Rare Hx Recreational Drug Use: No Hx Prescription Drug Abuse: No Family History Family History: Reviewed & Not Pertinent Parental Family History Reviewed: Yes Children Family History Reviewed: Yes Sibling(s) Family History Reviewed.: Yes Medication/Allergy Home Medications: Aspirin [Aspirin 81 mg Chewable Tablet] 81 mg PO DAILY 05/23/17 Valsartan/Hydrochlorothiazide [Valsartan-Hctz 80-12.5 mg Tab] 1 each PO DAILY 05/23/17 Allopurinol [Zyloprim 300 mg Tablet] 300 mg PO DAILY 01/17/20 Metformin HCl [Metformin HCl ER] 500 mg PO BID 01/17/20 Multivitamin [Multiple Vitamins] 1 tab PO DAILY 01/17/20 Allergies/Adverse Reactions: No Known Allergies Allergy (Verified 12/09/17 08:21) Review of Systems Constitutional: PRESENT: fatigue. ABSENT: chills, fever(s), headache(s), weight gain, weight loss Eyes: ABSENT: visual disturbances Ears: ABSENT: hearing changes Cardiovascular: ABSENT: chest pain, dyspnea on exertion, edema, orthropnea, palpitations Respiratory: ABSENT: cough, hemoptysis Gastrointestinal: PRESENT: nausea, vomiting. ABSENT: abdominal pain, constipation, diarrhea, hematemesis, hematochezia Genitourinary: ABSENT: dysuria, hematuria Musculoskeletal: ABSENT: joint swelling Integumentary: ABSENT: rash, wounds Neurological: ABSENT: abnormal gait, abnormal speech, confusion, dizziness, focal weakness, syncope Psychiatric: ABSENT: anxiety, depression, homidical ideation, suicidal ideation Endocrine: ABSENT: cold intolerance, heat intolerance, menstrual abnormalities, polydipsia, polyuria Hematologic/Lymphatic: ABSENT: easy bleeding, easy bruising, lymphadenopathy Physical Exam Vital Signs: Temp Pulse Resp BP Pulse Ox 97.5 F 64 16 126/73 H 99 01/17/20 07:18 01/17/20 07:18 01/17/20 07:18 01/17/20 07:18 01/17/20 07:18 Intake & Output 01/16/20 01/17/20 01/18/20 06:59 06:59 06:59 Intake Total 2260 Balance 2260 Weight 92.2 kg General appearance: PRESENT: no acute distress, well-developed, well-nourished Head exam: PRESENT: atraumatic, normocephalic Eye exam: PRESENT: conjunctiva pink, EOMI, PERRLA. ABSENT: scleral icterus Ear exam: PRESENT: normal external ear exam Mouth exam: PRESENT: moist, tongue midline Neck exam: PRESENT: full ROM. ABSENT: carotid bruit, JVD, lymphadenopathy, thyromegaly Respiratory exam: PRESENT: clear to auscultation maura Cardiovascular exam: PRESENT: RRR. ABSENT: diastolic murmur, rubs, systolic murmur Pulses: PRESENT: normal dorsalis pedis pul, +2 pedal pulses bilateral Vascular exam: PRESENT: normal capillary refill GI/Abdominal exam: PRESENT: normal bowel sounds, soft. ABSENT: distended, guarding, mass, organolmegaly, rebound, tenderness Rectal exam: PRESENT: deferred Musculoskeletal exam: PRESENT: ambulatory Neurological exam: PRESENT: alert, awake, oriented to person, oriented to place, oriented to time, oriented to situation, CN II-XII grossly intact. ABSENT: motor sensory deficit Psychiatric exam: PRESENT: appropriate affect, normal mood. ABSENT: homicidal ideation, suicidal ideation Skin exam: PRESENT: dry, intact, warm. ABSENT: cyanosis, rash Results Laboratory Results: 01/16/20 21:50 01/17/20 07:00 01/16/20 01/16/20 01/16/20 21:50 21:50 22:35 WBC 8.5 RBC 4.28 Hgb 13.5 Hct 39.8 MCV 93 MCH 31.5 MCHC 33.8 RDW 13.3 Plt Count 220 Seg Neutrophils % 71.2 Sodium 135.5 L Potassium 4.2 Chloride 101 Carbon Dioxide 16 L Anion Gap 19 BUN 73 H Creatinine 12.44 H Est GFR ( Amer) 4 L Est GFR (Non-Af Amer) Glucose 146 H Calcium 8.0 L Total Bilirubin 1.1 AST 37 H Alkaline Phosphatase 58 Total Protein 7.1 Albumin 4.1 Lipase 190.7 Urine Color YELLOW Urine Appearance CLOUDY Urine pH 6.0 Ur Specific [place] 1.009 Urine Protein 30 H Urine Glucose (UA) NEGATIVE Urine Ketones NEGATIVE Urine Blood SMALL H Urine Nitrite NEGATIVE Ur Leukocyte Esterase LARGE H Urine WBC (Auto) >182 Urine RBC (Auto) 10 01/17/20 07:00 WBC RBC Hgb Hct MCV MCH MCHC RDW Plt Count Seg Neutrophils % Sodium Cancelled Potassium Cancelled Chloride Cancelled Carbon Dioxide Cancelled Anion Gap Cancelled BUN Cancelled Creatinine Cancelled Est GFR ( Amer) Cancelled Est GFR (Non-Af Amer) Cancelled Glucose Cancelled Calcium Cancelled Total Bilirubin AST Alkaline Phosphatase Total Protein Albumin Lipase Urine Color Urine Appearance Urine pH Ur Specific [place] Urine Protein Urine Glucose (UA) Urine Ketones Urine Blood Urine Nitrite Ur Leukocyte Esterase Urine WBC (Auto) Urine RBC (Auto) Impressions: Abdomen/Pelvis CT 01/17/20 00:00 IMPRESSION: Nonspecific bilateral perinephric stranding. Any clinical symptoms of pyelonephritis? No hydronephrosis. Small nonobstructing left renal calculi. Assessment & Plan - Diagnosis (1) Acute renal failure Qualifiers: Acute renal failure type: unspecified Qualified Code(s): N17.9 - Acute kidney failure, unspecified Is this a current diagnosis for this admission?: Yes Plan: With the history of the recent urinary tract infections could be underlying pyelonephritis patient CT scan of the abdomen pelvis did not suggest any stone pathology patient BUN and creatinine within normal range last week so this is more acute component patient was on the Cipro medications we will consult the nephrology for further evaluation continues the IV fluid (2) Urinary tract infection Qualifiers: Urinary tract infection type: site unspecified Hematuria presence: without hematuria Qualified Code(s): N39.0 - Urinary tract infection, site not specified Is this a current diagnosis for this admission?: Yes Plan: We will start the patient on IV Rocephin (3) Pyelonephritis Is this a current diagnosis for this admission?: Yes Plan: Continues IV fluid and IV antibiotic (4) Hypertension Qualifiers: Hypertension type: essential hypertension Qualified Code(s): I10 - Essential (primary) hypertension Is this a current diagnosis for this admission?: Yes Plan: Currently hold the Diovan due to the acute renal failure continues to monitor (5) Hyperlipidemia Qualifiers: Hyperlipidemia type: unspecified Qualified Code(s): E78.5 - Hyperlipidemia, unspecified Is this a current diagnosis for this admission?: Yes (6) Type 2 diabetes mellitus Qualifiers: Diabetes mellitus jail insulin use: 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 Is this a current diagnosis for this admission?: Yes Plan: We hold the metformin continues the sliding scale (7) Vomiting Qualifiers: Vomiting type: unspecified Vomiting Intractability: non-intractable Nausea presence: with nausea Qualified Code(s): R11.2 - Nausea with vomiting, unspecified Is this a current diagnosis for this admission?: Yes Plan: due to the acute renal failure - Time Time Spent: 50 to 70 Minutes Medications reviewed and adjusted accordingly: Yes Anticipated Discharge Disposition: Home, Self Care Anticipated Discharge Timeframe: within 24 hours - Inpatient Certification Based on my medical assessment, after consideration of the patient's comorbidities, presenting symptoms, or acuity I expect that the services needed warrant INPATIENT care.: Yes I certify that my determination is in accordance with my understanding of Medicare's requirements for reasonable and necessary INPATIENT services [42 CFR 412.3e].: Yes Medical Necessity: Failure to Improve With Outpatient Therapy, Significant Comorbidiites Make Outpatient Treatment Too Risky, Need Close Monitoring Due to Risk of Patient Decompensation, Need For IV Fluids Post Hospital Care: D/C Area Relief Pilot Documentation - Plan Summary Plan Summary: Admit the patient in a telemetry bed Consult nephrology Continues IV fluid and IV antibiotic
[2020-01-17] MEDS: CEFTRIAXONE 1 GM/D5W RTU 1 GM/50 ML RTUPB IV SCH (09:58)
[2020-01-17 10:03] LABS: ANION GAP 16 (5-19); BLOOD UREA NITROGEN 68 mg/dL (7-20); CALCIUM 7.3 mg/dL (8.4-10.2); CARBON DIOXIDE 16 mmol/L (22-30); CHLORIDE 105 mmol/L (98-107); GLUCOSE 202 mg/dL (75-110); POTASSIUM 3.5 mmol/L (3.6-5.0)
--- NOTE | 2020-01-17 11:44 | CDI QUERY ---
<PAMELA OLIVO - Last Filed: 01/17/20 11:41> CDI Query CDI Review: Dear Provider, Please further specify if pt has: ACUTE KIDNEY INJURY WITH ACUTE TUBULAR NECROSIS ACUTE KIDNEY INJURY only OTHER UNABLE TO DETERMINE Clinical data: LISSETTE PYELONEPHRITIS UTI Cr 12.44 / BUN 73 Pamela Venegas [phone] <YSABEL FREY - Last Filed: 01/17/20 12:55> CDI Query Agree with Query: Yes
[2020-01-17] MEDS: SODIUM BICARBONATE 650 MG TABLET PO SCH ×2 (12:35→21:39)
[2020-01-17] MEDS: NORMAL SALINE 1000 ML 1,000 ML IV PRN ×2 (12:36→20:10)
[2020-01-17] MEDS ORDERED: CALCIUM GLUC IN NACL, ISO-OSM 1 GM/50 ML RTUPB IV ONE (12:40)
--- NOTE | 2020-01-17 12:46 | PDOC CONSULTATION ---
Consultation Consult Date: 01/17/20 Provider Consulted: LILA RED Consult reason:: LISSETTE History of Present Illness Admission Date/PCP: 01/16/20 23:19 YSABEL BEASLEY MD History of Present Illness: AGUILAR DU is a 64 year old female with a history of hypertension, diabetes mellitus type 2 and nephrolithiasis in the past who presented to the emergency room last night because of persistent nausea, vomiting and feeling tired. Patient states that she was treated for urinary tract infection at Dr. Beasley's office about few weeks ago and completed ciprofloxacin at this given to her last week, Friday. For the past week her symptoms has gotten worse and she was unable to keep anything down her stomach including solids and liquids. She states that this morning was the first meal that she was able to keep down. She has a limit of a dry cough but likely because of the vomiting. She denied any fever. She denied any dysuria, urgency, or frequency. She denies any abdominal pain or flank pain. She denied any diarrhea. Patient has history of nephrolithiasis for which she has had stents done the last time in December 2018 and followed up with the urologist, Dr. López in [place]. Upon presentation she had a BUN of 73 and creatinine of 12.4. Last week at Dr. Beasley's office she had a BUN of 15 and creatinine of 1.0. In the emergency room she was given approximately 3 L of IV fluids. Her urinalysis showed a cloudy urine, protein of 30, large leukocyte esterase and WBC greater than 182. CT scan of her abdomen showed nonspecific bilateral perinephric stranding possible pyelonephritis. No hydronephrosis. Small nonobstructing left renal calculi. Hepatomegaly] poor adrenal lesions consistent with adenoma. She was also started on IV ceftriaxone. This morning she feels a lot better than when she came in. She is making urine although not being quantified currently. She was able to keep her breakfast as stated above. She has no other complaints otherwise. Past Medical History Cardiac Medical History: Reports: Hypertension-primary Endocrine Medical History: Reports: Diabetes Mellitus Type 2 Renal/ Medical History: Reports: Nephrolithiasis Malignancy Medical History: Reports: Ovarian Cancer - Status post surgery without any chemo nor radiation therapy, Skin Cancer Past Surgical History Past Surgical History: Reports: Appendectomy, Cholecystectomy, Hysterectomy, Tubal Ligation, Other - Oophorectomy s/p renal stent placement & removal due to stones, 01/01,12/01 Social History Information Source: Patient Lives with: Family Smoking Status: Former Smoker Electronic Cigarette use?: No Frequency of Alcohol Use: Rare Hx Recreational Drug Use: No Hx Prescription Drug Abuse: No Family History Family History: DM - Father, Malignancy - Testicular cancer on her brother Parental Family History Reviewed: Yes Children Family History Reviewed: Yes Sibling(s) Family History Reviewed.: Yes Medication/Allergy Home Medications: Aspirin [Aspirin 81 mg Chewable Tablet] 81 mg PO DAILY 05/23/17 Valsartan/Hydrochlorothiazide [Valsartan-Hctz 80-12.5 mg Tab] 1 each PO DAILY 05/23/17 Allopurinol [Zyloprim 300 mg Tablet] 300 mg PO DAILY 01/17/20 Metformin HCl [Metformin HCl ER] 500 mg PO BID 01/17/20 Multivitamin [Multiple Vitamins] 1 tab PO DAILY 01/17/20 Allergies/Adverse Reactions: No Known Allergies Allergy (Verified 12/09/17 08:21) Review of Systems All systems: reviewed and no additional remarkable complaints except as stated Review of Systems: Constitutional: ABSENT: chills, fever(s), headache(s), weight gain, weight loss; admits fatigue Eyes: ABSENT: visual disturbances Ears: ABSENT: hearing changes Cardiovascular: ABSENT: chest pain, dyspnea on exertion, edema, orthropnea, palpitations Respiratory: ABSENT: cough, dyspnea, hemoptysis Gastrointestinal: ABSENT: abdominal pain, constipation, diarrhea, hematemesis, hematochezia; admits nausea, and vomiting Genitourinary: ABSENT: dysuria, hematuria Musculoskeletal: ABSENT: joint swelling Integumentary: ABSENT: rash, wounds Neurological: ABSENT: abnormal gait, abnormal speech, confusion, dizziness, focal weakness, numbness, syncope Psychiatric: ABSENT: anxiety, depression Endocrine: ABSENT: cold intolerance, heat intolerance, polydipsia, polyuria Hematologic/Lymphatic: ABSENT: easy bleeding, easy bruising, lymphadenopathy Physical Exam Vital Signs: Temp Pulse Resp BP Pulse Ox 97.5 F 64 16 126/73 H 99 01/17/20 07:18 01/17/20 07:18 01/17/20 07:18 01/17/20 07:18 01/17/20 07:18 Intake & Output 01/16/20 01/17/20 01/18/20 06:59 06:59 06:59 Intake Total 2260 Balance 2260 Weight 92.2 kg Exam: General appearance: No acute distress, cooperative, well-developed, well- nourished Head exam: PRESENT: atraumatic, normocephalic Eye exam: PRESENT: Conjunctiva slightly pale, EOMI, PERRLA. ABSENT: conjunctival injection, scleral icterus Mouth exam: PRESENT: moist, neck supple, tongue midline Neck exam: PRESENT: full ROM. ABSENT: carotid bruit, JVD, lymphadenopathy, thyromegaly Respiratory exam: PRESENT: clear to auscultation bilaterally. ABSENT: rales, rhonchi, stridor, wheezes Cardiovascular exam: PRESENT: RRR, +S1, +S2. ABSENT: systolic murmur Pulses: PRESENT: normal radial pulses, normal dorsalis pedis pulses GI/Abdominal exam: PRESENT: normal bowel sounds, soft. ABSENT: guarding, mass, tenderness Rectal exam: Deferred Extremities exam: PRESENT: full ROM. ABSENT: calf tenderness, pedal edema Musculoskeletal: PRESENT: full ROM. ABSENT: deformity Neurological exam: PRESENT: alert, Awake, Oriented to person, Oriented to place, Oriented to time, reflexes normal, CN II-XII grossly intact. ABSENT: motor sensory deficit Psychiatric exam: PRESENT: appropriate affect, normal mood. ABSENT: homicidal ideation, suicidal ideation Skin exam: PRESENT: intact, dry, warm. ABSENT: rash Results Laboratory Results: 01/16/20 21:50 01/17/20 09:07 01/16/20 01/16/20 01/16/20 21:50 21:50 22:35 WBC 8.5 RBC 4.28 Hgb 13.5 Hct 39.8 MCV 93 MCH 31.5 MCHC 33.8 RDW 13.3 Plt Count 220 Seg Neutrophils % 71.2 Sodium 135.5 L Potassium 4.2 Chloride 101 Carbon Dioxide 16 L Anion Gap 19 BUN 73 H Creatinine 12.44 H Est GFR ( Amer) 4 L Est GFR (Non-Af Amer) Glucose 146 H Calcium 8.0 L Total Bilirubin 1.1 AST 37 H Alkaline Phosphatase 58 Total Protein 7.1 Albumin 4.1 Lipase 190.7 Urine Color YELLOW Urine Appearance CLOUDY Urine pH 6.0 Ur Specific [place] 1.009 Urine Protein 30 H Urine Glucose (UA) NEGATIVE Urine Ketones NEGATIVE Urine Blood SMALL H Urine Nitrite NEGATIVE Ur Leukocyte Esterase LARGE H Urine WBC (Auto) >182 Urine RBC (Auto) 10 01/17/20 01/17/20 07:00 09:07 WBC RBC Hgb Hct MCV MCH MCHC RDW Plt Count Seg Neutrophils % Sodium Cancelled 136.8 L Potassium Cancelled 3.5 L Chloride Cancelled 105 Carbon Dioxide Cancelled 16 L Anion Gap Cancelled 16 BUN Cancelled 68 H Creatinine Cancelled 10.88 H Est GFR ( Amer) Cancelled 4 L Est GFR (Non-Af Amer) Cancelled Glucose Cancelled 202 H Calcium Cancelled 7.3 L Total Bilirubin AST Alkaline Phosphatase Total Protein Albumin Lipase Urine Color Urine Appearance Urine pH Ur Specific [place] Urine Protein Urine Glucose (UA) Urine Ketones Urine Blood Urine Nitrite Ur Leukocyte Esterase Urine WBC (Auto) Urine RBC (Auto) Impressions: Abdomen/Pelvis CT 01/17/20 00:00 IMPRESSION: Nonspecific bilateral perinephric stranding. Any clinical symptoms of pyelonephritis? No hydronephrosis. Small nonobstructing left renal calculi. Assessment & Plan - Diagnosis (1) Acute renal failure Qualifiers: Acute renal failure type: unspecified Qualified Code(s): N17.9 - Acute kidney failure, unspecified Is this a current diagnosis for this admission?: Yes Plan: Baseline creatinine of 1.0 and coming in with creatinine of 12.44. Patient reports that she is making urine. Repeat creatinine after 2 L of fluids is now 10.88. This is most likely secondary to prerenal azotemia due to poor oral intake and volume depletion in the background of acute pyelonephritis. No hydronephrosis per CT scan of the abdomen. Continue IV fluid hydration with normal saline. Monitor intake and output. Avoid nephrotoxic medications and adjust medications according to her kidney function with EGFR less than 5. At this time there is no urgent indication for acute renal replacement therapy. Monitor kidney function and electrolytes. (2) Pyelonephritis Is this a current diagnosis for this admission?: Yes Plan: Urine culture preliminary results is positive for gram-negative jeff. CT scan findings suggestive of this. Continue IV ceftriaxone. (3) Vomiting Qualifiers: Vomiting type: unspecified Vomiting Intractability: non-intractable Nausea presence: with nausea Qualified Code(s): R11.2 - Nausea with vomiting, unspecified Is this a current diagnosis for this admission?: Yes Plan: Due to current infection. (4) Metabolic acidosis Is this a current diagnosis for this admission?: Yes Plan: Due to LISSETTE and volume expansion. Will start sodium bicarbonate orally. (5) Hypocalcemia Is this a current diagnosis for this admission?: Yes Plan: We will keep calcium supplements. (6) Hypertension Qualifiers: Hypertension type: essential hypertension Qualified Code(s): I10 - Essential (primary) hypertension Is this a current diagnosis for this admission?: Yes Plan: Currently controlled. (7) Type 2 diabetes mellitus Qualifiers: Diabetes mellitus longterm insulin use: without longterm use Is this a current diagnosis for this admission?: Yes Plan: Fairly controlled. - Notes Notes: Thank you very much for this consultation. - Time Time Spent: 50 to 70 Minutes
[2020-01-17] MEDS: CALCIUM CARBONATE 600 MG TABLET PO SCH (18:30)
[2020-01-18] MEDS: NORMAL SALINE 1000 ML 1,000 ML IV PRN ×2 (03:57→11:57)
[2020-01-18 05:25] LABS: ABSOLUTE BASOPHILS # (AUTO) 0.1 10^3/uL (0.0-0.2); ABSOLUTE EOSINOPHILS # (AUTO) 0.4 10^3/uL (0.0-0.6); ABSOLUTE LYMPHOCYTES (AUTO) 2.1 10^3/uL (0.5-4.7); ABSOLUTE MONOCYTES (AUTO) 0.5 10^3/uL (0.1-1.4); ABSOLUTE NEUT (AUTO) 3.2 10^3/uL (1.7-8.2); BASOPHILS % (AUTO) 1.9 % (0-2); EOSINOPHILS % (AUTO) 5.7 % (0-6); HEMOGLOBIN 11.7 g/dL (12.0-15.5); LYMPHOCYTES % (AUTO) 33.2 % (13-45); MEAN CORPUSCULAR HEMOGLOBIN 31.8 pg (27.0-33.4); MEAN CORPUSCULAR HGB CONC 34.4 g/dL (32.0-36.0); MEAN CORPUSCULAR VOLUME 93 fl (80-97); PLATELET COUNT 184 10^3/uL (150-450); RED BLOOD COUNT 3.67 10^6/uL (3.72-5.28); RED CELL DISTRIBUTION WIDTH 13.5 % (11.5-14.0); SEGMENTED NEUTROPHILS % (AUTO) 51.2 % (42-78); TOTAL CELLS COUNTED % (AUTO) 100 %; WHITE BLOOD COUNT 6.3 10^3/uL (4.0-10.5)
[2020-01-18 05:33] LABS: ANION GAP 11 (5-19); BLOOD UREA NITROGEN 69 mg/dL (7-20); CALCIUM 7.9 mg/dL (8.4-10.2); CARBON DIOXIDE 19 mmol/L (22-30); CHLORIDE 109 mmol/L (98-107); GLUCOSE 120 mg/dL (75-110)
[2020-01-18 05:36] LABS: POTASSIUM 3.5 mmol/L (3.6-5.0)
[2020-01-18] MEDS: INSULIN LISPRO 100 UNIT/ML 3 ML VIAL SUBCUT SCH ×4 (08:56→22:04)
--- NOTE | 2020-01-18 09:20 | PDOC PROGRESS REPORT ---
Subjective Progress Note for:: 01/18/20 Subjective:: Patient is currently doing well Patient is urinating well without any problems Patient's urine cultures grew out gram-negative organism Patient's denied any abdominal pain no nausea no vomiting Reason For Visit: ACUTE RENAL FAILURE,VOMITING,URINARY TRACT INFECT- Physical Exam Vital Signs: Temp Pulse Resp BP Pulse Ox 99.3 F 74 20 150/84 H 99 01/18/20 07:32 01/18/20 07:32 01/18/20 07:32 01/18/20 07:32 01/18/20 07:32 Intake & Output 01/17/20 01/18/20 01/19/20 06:59 06:59 06:59 Intake Total 2260 3997 Output Total 3100 Balance 2260 897 Weight 92.2 kg 85.7 kg General appearance: PRESENT: no acute distress, well-developed, well-nourished Head exam: PRESENT: atraumatic, normocephalic Eye exam: PRESENT: conjunctiva pink, EOMI, PERRLA. ABSENT: scleral icterus Ear exam: PRESENT: normal external ear exam Mouth exam: PRESENT: moist, tongue midline Neck exam: PRESENT: full ROM. ABSENT: carotid bruit, JVD, lymphadenopathy, thyromegaly Respiratory exam: PRESENT: clear to auscultation maura Cardiovascular exam: PRESENT: RRR. ABSENT: diastolic murmur, rubs, systolic murmur Pulses: PRESENT: normal dorsalis pedis pul, +2 pedal pulses bilateral Vascular exam: PRESENT: normal capillary refill GI/Abdominal exam: PRESENT: normal bowel sounds, soft. ABSENT: distended, guarding, mass, organolmegaly, rebound, tenderness Rectal exam: PRESENT: deferred Neurological exam: PRESENT: alert, awake, oriented to person, oriented to place, oriented to time, oriented to situation, CN II-XII grossly intact. ABSENT: motor sensory deficit Psychiatric exam: PRESENT: appropriate affect, normal mood. ABSENT: homicidal ideation, suicidal ideation Skin exam: PRESENT: dry, intact, warm. ABSENT: cyanosis, rash Results Laboratory Results: 01/18/20 04:28 01/18/20 04:28 01/17/20 01/18/20 01/18/20 09:07 04:28 04:28 WBC 6.3 RBC 3.67 L Hgb 11.7 L Hct 34.0 L MCV 93 MCH 31.8 MCHC 34.4 RDW 13.5 Plt Count 184 Seg Neutrophils % 51.2 Sodium 136.8 L 139.3 Potassium 3.5 L 3.5 L Chloride 105 109 H Carbon Dioxide 16 L 19 L Anion Gap 16 11 BUN 68 H 69 H Creatinine 10.88 H 9.29 H Est GFR ( Amer) 4 L 5 L Glucose 202 H 120 H Calcium 7.3 L 7.9 L Impressions: Abdomen/Pelvis CT 01/17/20 00:00 IMPRESSION: Nonspecific bilateral perinephric stranding. Any clinical symptoms of pyelonephritis? No hydronephrosis. Small nonobstructing left renal calculi. Assessment & Plan - Diagnosis (1) Acute renal failure Qualifiers: Acute renal failure type: unspecified Qualified Code(s): N17.9 - Acute kidney failure, unspecified Is this a current diagnosis for this admission?: Yes Plan: Continues to IV fluid (2) Urinary tract infection Qualifiers: Urinary tract infection type: site unspecified Hematuria presence: without hematuria Qualified Code(s): N39.0 - Urinary tract infection, site not specified Is this a current diagnosis for this admission?: Yes Plan: The biotic follow-up with the culture and sensitivity (3) Pyelonephritis Is this a current diagnosis for this admission?: Yes Plan: on IV antibiotic (4) Hypertension Qualifiers: Hypertension type: essential hypertension Qualified Code(s): I10 - Esse ntial (primary) hypertension Is this a current diagnosis for this admission?: Yes (5) Hyperlipidemia Qualifiers: Hyperlipidemia type: unspecified Qualified Code(s): E78.5 - Hyperlipidemia, unspecified Is this a current diagnosis for this admission?: Yes (6) Type 2 diabetes mellitus 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 (7) Vomiting Qualifiers: Vomiting type: unspecified Vomiting Intractability: non-intractable Nausea presence: with nausea Qualified Code(s): R11.2 - Nausea with vomiting, unspecified Is this a current diagnosis for this admission?: Yes - Time Time Spent with patient: 15-24 minutes Level of Care: TELE Medications reviewed and adjusted accordingly: Yes Anticipated discharge: Home Anticipated DC Timeframe: within 72 hours - Plan Summary Plan Summary: Continues IV antibiotic Follow-up with the nephrology
[2020-01-18] MEDS: SODIUM BICARBONATE 650 MG TABLET PO SCH ×2 (09:30→22:04)
[2020-01-18] MEDS: CALCIUM CARBONATE 600 MG TABLET PO SCH ×2 (09:30→17:31)
[2020-01-18] MEDS: CEFTRIAXONE 1 GM/D5W RTU 1 GM/50 ML RTUPB IV SCH (09:30)
--- NOTE | 2020-01-18 12:48 | PDOC PROGRESS REPORT ---
Subjective Progress Note for:: 01/18/20 Subjective:: Patient stated she is feeling better. She is eating and has no new complaints. She is passing a good amount of urine output and for the past 24 hours has made 2100 mL of urine. Reason For Visit: ACUTE RENAL FAILURE,VOMITING,URINARY TRACT INFECT- Physical Exam Vital Signs: Temp Pulse Resp BP Pulse Ox 99.3 F 74 20 150/84 H 99 01/18/20 07:32 01/18/20 07:32 01/18/20 07:32 01/18/20 07:32 01/18/20 07:32 Intake & Output 01/17/20 01/18/20 01/19/20 06:59 06:59 06:59 Intake Total 2260 3997 50 Output Total 3100 Balance 2260 897 50 Weight 92.2 kg 85.7 kg Exam: General appearance: PRESENT: no acute distress, cooperative, well-developed, well-nourished Head exam: PRESENT: atraumatic, normocephalic Eye exam: PRESENT: conjunctiva pink, PERRLA. ABSENT: scleral icterus Neck exam: ABSENT: JVD Respiratory exam: PRESENT: Normal breath sounds. ABSENT: crackles, rales, rhonchi, unlabored, wheezes Cardiovascular exam: PRESENT: Regular rate rhythm -+S1, +S2. ABSENT: diastolic murmur, systolic murmur GI/Abdominal exam: PRESENT: normal bowel sounds, soft. ABSENT: guarding, mass, tenderness Extremities exam: ABSENT: No edema Neurological exam: PRESENT: alert, awake, oriented to person, place and time. Skin exam: PRESENT: dry, warm, Results Laboratory Results: 01/18/20 04:28 01/18/20 04:28 01/18/20 01/18/20 04:28 04:28 WBC 6.3 RBC 3.67 L Hgb 11.7 L Hct 34.0 L MCV 93 MCH 31.8 MCHC 34.4 RDW 13.5 Plt Count 184 Seg Neutrophils % 51.2 Sodium 139.3 Potassium 3.5 L Chloride 109 H Carbon Dioxide 19 L Anion Gap 11 BUN 69 H Creatinine 9.29 H Est GFR ( Amer) 5 L Glucose 120 H Calcium 7.9 L Impressions: Abdomen/Pelvis CT 01/17/20 00:00 IMPRESSION: Nonspecific bilateral perinephric stranding. Any clinical symptoms of pyelonephritis? No hydronephrosis. Small nonobstructing left renal calculi. Assessment & Plan - Diagnosis (1) Acute renal failure Qualifiers: Acute renal failure type: unspecified Qualified Code(s): N17.9 - Acute kidney failure, unspecified Is this a current diagnosis for this admission?: Yes Plan: Nonoliguric, secondary to acute prerenal azotemia. Currently improving with IV fluid hydration. Continue the same. Continue to monitor kidney function. (2) Pyelonephritis Is this a current diagnosis for this admission?: Yes Plan: On IV ceftriaxone. (3) Vomiting Qualifiers: Vomiting type: unspecified Vomiting Intractability: non-intractable Nausea presence: with nausea Qualified Code(s): R11.2 - Nausea with vomiting, unspecified Is this a current diagnosis for this admission?: Yes Plan: Resolved. (4) Metabolic acidosis Is this a current diagnosis for this admission?: Yes Plan: On sodium bicarbonate. (5) Hypocalcemia Is this a current diagnosis for this admission?: Yes Plan: Improving. On calcium supplements. (6) Hypertension Qualifiers: Hypertension type: essential hypertension Qualified Code(s): I10 - Essential (primary) hypertension Is this a current diagnosis for this admission?: Yes (7) Type 2 diabetes mellitus Qualifiers: Diabetes mellitus meterman insulin use: without halfway use Is this a current diagnosis for this admission?: Yes - Time Time with patient: 15-25 minutes
[2020-01-18] MEDS ORDERED: POTASSIUM CHLORIDE 10 MEQ TABLET.ER PO ONE (13:30)
[2020-01-19] MEDS: NORMAL SALINE 1000 ML 1,000 ML IV PRN ×2 (02:22→09:29)
[2020-01-19 06:03] LABS: ANION GAP 11 (5-19); BLOOD UREA NITROGEN 55 mg/dL (7-20); CALCIUM 8.1 mg/dL (8.4-10.2); CARBON DIOXIDE 18 mmol/L (22-30); CHLORIDE 112 mmol/L (98-107); GLUCOSE 109 mg/dL (75-110); POTASSIUM 3.3 mmol/L (3.6-5.0)
[2020-01-19] MEDS ORDERED: POTASSIUM CHLORIDE 10 MEQ TABLET.ER PO ONE (09:00)
[2020-01-19] MEDS: INSULIN LISPRO 100 UNIT/ML 3 ML VIAL SUBCUT SCH ×4 (09:04→22:10)
--- NOTE | 2020-01-19 09:19 | PDOC PROGRESS REPORT ---
Subjective Progress Note for:: 01/19/20 Subjective:: Patient is currently doing much better Denied any back pain denied any fever no chills No nausea no vomiting Patient kidney function is also improving Reason For Visit: ACUTE RENAL FAILURE,VOMITING,URINARY TRACT INFECT- Physical Exam Vital Signs: Temp Pulse Resp BP Pulse Ox 98.4 F 71 17 132/61 H 99 01/19/20 08:26 01/19/20 08:26 01/19/20 08:26 01/19/20 08:26 01/19/20 08:26 Intake & Output 01/18/20 01/19/20 01/20/20 06:59 06:59 06:59 Intake Total 3997 4692 Output Total 3100 4150 Balance 897 542 Weight 95.7 kg 94.8 kg General appearance: PRESENT: no acute distress, well-developed, well-nourished Head exam: PRESENT: atraumatic, normocephalic Eye exam: PRESENT: conjunctiva pink, EOMI, PERRLA. ABSENT: scleral icterus Ear exam: PRESENT: normal external ear exam Mouth exam: PRESENT: moist, tongue midline Neck exam: PRESENT: full ROM. ABSENT: carotid bruit, JVD, lymphadenopathy, thyromegaly Respiratory exam: PRESENT: clear to auscultation maura Cardiovascular exam: PRESENT: RRR. ABSENT: diastolic murmur, rubs, systolic murmur Pulses: PRESENT: normal dorsalis pedis pul, +2 pedal pulses bilateral Vascular exam: PRESENT: normal capillary refill GI/Abdominal exam: PRESENT: normal bowel sounds, soft. ABSENT: distended, guarding, mass, organolmegaly, rebound, tenderness Rectal exam: PRESENT: deferred Extremities exam: ABSENT: pedal edema Musculoskeletal exam: PRESENT: ambulatory Neurological exam: PRESENT: alert, awake, oriented to person, oriented to place, oriented to time, oriented to situation, CN II-XII grossly intact. ABSENT: motor sensory deficit Psychiatric exam: PRESENT: appropriate affect, normal mood. ABSENT: homicidal ideation, suicidal ideation Skin exam: PRESENT: dry, intact, warm. ABSENT: cyanosis, rash Results Laboratory Results: 01/18/20 04:28 01/19/20 04:31 01/19/20 04:31 Sodium 140.8 Potassium 3.3 L Chloride 112 H Carbon Dioxide 18 L Anion Gap 11 BUN 55 H Creatinine 5.29 H Est GFR ( Amer) 10 L Glucose 109 Calcium 8.1 L Impressions: Abdomen/Pelvis CT 01/17/20 00:00 IMPRESSION: Nonspecific bilateral perinephric stranding. Any clinical symptoms of pyelonephritis? No hydronephrosis. Small nonobstructing left renal calculi. Assessment & Plan - Diagnosis (1) Acute renal failure Qualifiers: Acute renal failure type: unspecified Qualified Code(s): N17.9 - Acute kidney failure, unspecified Is this a current diagnosis for this admission?: Yes Plan: Currently all improving replace the potassiums (2) Urinary tract infection Qualifiers: Urinary tract infection type: site unspecified Hematuria presence: without hematuria Qualified Code(s): N39.0 - Urinary tract infection, site not specified Is this a current diagnosis for this admission?: Yes Plan: Continues the IV Rocephin wait for the culture and sensitivity (3) Pyelonephritis Is this a current diagnosis for this admission?: Yes Plan: Continues IV Rocephin (4) Hypertension Qualifiers: Hypertension type: essential hypertension Qualified Code(s): I10 - Essential (primary) hypertension Is this a current diagnosis for this admission?: Yes Plan: Currently all stable continues to hold the blood pressure medications (5) Hyperlipidemia Qualifiers: Hyperlipidemia type: unspecified Qualified Code(s): E78.5 - Hyperlipidemia, unspecified Is this a current diagnosis for this admission?: Yes (6) Type 2 diabetes mellitus 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 use: without skilled nursing use Is this a current diagnosis for this admission?: Yes Plan: Continues a sliding scale (7) Vomiting Qualifiers: Vomiting type: unspecified Vomiting Intractability: non-intractable Nausea presence: with nausea Qualified Code(s): R11.2 - Nausea with vomiting, unspecified Is this a current diagnosis for this admission?: Yes - Time Time Spent with patient: 25-34 minutes Level of Care: TELE Medications reviewed and adjusted accordingly: Yes Anticipated discharge: Home Anticipated DC Timeframe: within 72 hours - Plan Summary Plan Summary: Replace the potassiums continues IV antibiotic IV fluid follow with nephrology
[2020-01-19] MEDS: CEFTRIAXONE 1 GM/D5W RTU 1 GM/50 ML RTUPB IV SCH (09:29)
[2020-01-19] MEDS: SODIUM BICARBONATE 650 MG TABLET PO SCH ×2 (09:29→22:06)
[2020-01-19] MEDS: CALCIUM CARBONATE 600 MG TABLET PO SCH ×2 (09:29→18:23)
--- NOTE | 2020-01-19 11:19 | PDOC PROGRESS REPORT ---
Subjective Progress Note for:: 01/19/20 Subjective:: Patient is doing fine and tells me she has been feeling better. Her urine output was recorded as 900 mL. She has no new complaints. Reason For Visit: ACUTE RENAL FAILURE,VOMITING,URINARY TRACT INFECT- Physical Exam Vital Signs: Temp Pulse Resp BP Pulse Ox 98.4 F 71 17 132/61 H 99 01/19/20 08:26 01/19/20 08:26 01/19/20 08:26 01/19/20 08:26 01/19/20 08:26 Intake & Output 01/18/20 01/19/20 01/20/20 06:59 06:59 06:59 Intake Total 3997 4692 1330 Output Total 3100 4150 900 Balance 897 542 430 Weight 95.7 kg 94.8 kg Exam: General appearance: PRESENT: no acute distress, cooperative, well-developed, wel l-nourished Head exam: PRESENT: atraumatic, normocephalic Eye exam: PRESENT: conjunctiva pink, PERRLA. ABSENT: scleral icterus Neck exam: ABSENT: JVD Respiratory exam: PRESENT: Normal breath sounds. ABSENT: crackles, rales, rhonchi, unlabored, wheezes Cardiovascular exam: PRESENT: Regular rate rhythm -+S1, +S2. ABSENT: diastolic murmur, systolic murmur GI/Abdominal exam: PRESENT: normal bowel sounds, soft. ABSENT: guarding, mass, tenderness Extremities exam: ABSENT: No edema Neurological exam: PRESENT: alert, awake, oriented to person, place and time. Skin exam: PRESENT: dry, warm, Results Laboratory Results: 01/18/20 04:28 01/19/20 04:31 01/19/20 04:31 Sodium 140.8 Potassium 3.3 L Chloride 112 H Carbon Dioxide 18 L Anion Gap 11 BUN 55 H Creatinine 5.29 H Est GFR ( Amer) 10 L Glucose 109 Calcium 8.1 L 01/16/20 22:35 Clean Catch Midstream Urine Culture - Final Klebsiella Pneumoniae-Esbl Impressions: Abdomen/Pelvis CT 01/17/20 00:00 IMPRESSION: Nonspecific bilateral perinephric stranding. Any clinical symptoms of pyelonephritis? No hydronephrosis. Small nonobstructing left renal calculi. Assessment & Plan - Diagnosis (1) Acute renal failure Qualifiers: Acute renal failure type: unspecified Qualified Code(s): N17.9 - Acute kidney failure, unspecified Is this a current diagnosis for this admission?: Yes Plan: Nonoliguric, secondary to acute prerenal azotemia. I will change her IV fluids to 0.9 normal saline with 20 mEq of potassium at 125 mL an hour.. Continue to monitor kidney function. (2) Pyelonephritis Is this a current diagnosis for this admission?: Yes Plan: Urine culture showed Klebsiella pneumoniae, ESBL resistant to IV ceftriaxone. I will change her antibiotics to IV ertapenem 500 mg daily first dose today. (3) Vomiting Qualifiers: Vomiting type: unspecified Vomiting Intractability: non-intractable Nausea presence: with nausea Qualified Code(s): R11.2 - Nausea with vomiting, unspecified Is this a current diagnosis for this admission?: Yes Plan: Resolved. (4) Metabolic acidosis Is this a current diagnosis for this admission?: Yes Plan: On sodium bicarbonate. (5) Hypocalcemia Is this a current diagnosis for this admission?: Yes Plan: Improving. On calcium supplements. (6) Hypertension Qualifiers: Hypertension type: essential hypertension Qualified Code(s): I10 - Essential (primary) hypertension Is this a current diagnosis for this admission?: Yes Plan: Mostly controlled. (7) Type 2 diabetes mellitus Qualifiers: Diabetes mellitus long term care social worker insulin use: without detention use Is this a current diagnosis for this admission?: Yes Plan: Controlled. - Time Time with patient: 15-25 minutes
[2020-01-19] MEDS: POTASSI CL 40 MEQ/NS 1L 1,000 ML IV PRN ×2 (11:44→22:07)
[2020-01-19] MEDS: ERTAPENEM SODIUM 0.5 GM in NORMAL SALINE 50 ML IV SCH (18:23)
[2020-01-20] MEDS: POTASSI CL 40 MEQ/NS 1L 1,000 ML IV PRN ×2 (06:48→11:44)
[2020-01-20] MEDS: INSULIN LISPRO 100 UNIT/ML 3 ML VIAL SUBCUT SCH ×4 (08:34→22:01)
[2020-01-20] MEDS: CALCIUM CARBONATE 600 MG TABLET PO SCH ×2 (08:35→17:28)
[2020-01-20 09:04] LABS: HEMATOCRIT 33.3 % (36.0-47.0); HEMOGLOBIN 11.2 g/dL (12.0-15.5); MEAN CORPUSCULAR HEMOGLOBIN 31.8 pg (27.0-33.4); MEAN CORPUSCULAR HGB CONC 33.8 g/dL (32.0-36.0); MEAN CORPUSCULAR VOLUME 94 fl (80-97); PLATELET COUNT 195 10^3/uL (150-450); RED BLOOD COUNT 3.53 10^6/uL (3.72-5.28); RED CELL DISTRIBUTION WIDTH 13.6 % (11.5-14.0)
[2020-01-20 09:31] LABS: ANION GAP 7 (5-19); BLOOD UREA NITROGEN 36 mg/dL (7-20); CALCIUM 8.2 mg/dL (8.4-10.2); CARBON DIOXIDE 21 mmol/L (22-30); CHLORIDE 113 mmol/L (98-107); GLUCOSE 199 mg/dL (75-110); POTASSIUM 4.4 mmol/L (3.6-5.0)
[2020-01-20] MEDS: SODIUM BICARBONATE 650 MG TABLET PO SCH ×2 (10:23→22:01)
[2020-01-20] MEDS: MAGNESIUM SULFATE 1 GM/D5W 100 ML IV SCH ×2 (10:24→13:12)
--- NOTE | 2020-01-20 11:19 | PDOC PROGRESS REPORT ---
Subjective Progress Note for:: 01/20/20 Subjective:: Patient is feeling much better Since magnesium is lower Patient's creatinine is all improving Since denied any chest pain no short of breath no abdominal pain Urine cultures grew up ESBL continues the entrepenam Reason For Visit: ACUTE RENAL FAILURE,VOMITING,URINARY TRACT INFECT- Physical Exam Vital Signs: Temp Pulse Resp BP Pulse Ox 98.5 F 71 18 140/77 H 99 01/20/20 00:00 01/20/20 00:00 01/20/20 00:00 01/20/20 00:00 01/20/20 00:00 Intake & Output 01/19/20 01/20/20 01/21/20 06:59 06:59 06:59 Intake Total 4692 4710 Output Total 4150 5300 Balance 542 -590 Weight 94.8 kg 90.9 kg General appearance: PRESENT: no acute distress, well-developed, well-nourished Head exam: PRESENT: atraumatic, normocephalic Eye exam: PRESENT: conjunctiva pink, EOMI, PERRLA. ABSENT: scleral icterus Ear exam: PRESENT: normal external ear exam Mouth exam: PRESENT: moist, tongue midline Neck exam: PRESENT: full ROM. ABSENT: carotid bruit, JVD, lymphadenopathy, thyromegaly Respiratory exam: PRESENT: clear to auscultation maura Cardiovascular exam: PRESENT: RRR. ABSENT: diastolic murmur, rubs, systolic murmur Pulses: PRESENT: normal dorsalis pedis pul, +2 pedal pulses bilateral Vascular exam: PRESENT: normal capillary refill GI/Abdominal exam: PRESENT: normal bowel sounds, soft. ABSENT: distended, guarding, mass, organolmegaly, rebound, tenderness Rectal exam: PRESENT: deferred Musculoskeletal exam: PRESENT: ambulatory Neurological exam: PRESENT: alert, awake, oriented to person, oriented to place, oriented to time, oriented to situation, CN II-XII grossly intact. ABSENT: motor sensory deficit Psychiatric exam: PRESENT: appropriate affect, normal mood. ABSENT: homicidal ideation, suicidal ideation Skin exam: PRESENT: dry, intact, warm. ABSENT: cyanosis, rash Results Laboratory Results: 01/20/20 08:40 01/20/20 08:40 01/20/20 01/20/20 08:40 08:40 WBC 5.0 RBC 3.53 L Hgb 11.2 L Hct 33.3 L MCV 94 MCH 31.8 MCHC 33.8 RDW 13.6 Plt Count 195 Sodium 140.7 Potassium 4.4 Chloride 113 H Carbon Dioxide 21 L Anion Gap 7 BUN 36 H Creatinine 2.88 H Est GFR ( Amer) 20 L Glucose 199 H Calcium 8.2 L Magnesium 1.1 L* 01/16/20 22:35 Clean Catch Midstream Urine Culture - Final Klebsiella Pneumoniae-Esbl Impressions: Abdomen/Pelvis CT 01/17/20 00:00 IMPRESSION: Nonspecific bilateral perinephric stranding. Any clinical symptoms of pyelonephritis? No hydronephrosis. Small nonobstructing left renal calculi. Assessment & Plan - Diagnosis (1) Acute renal failure Qualifiers: Acute renal failure type: unspecified Qualified Code(s): N17.9 - Acute kidney failure, unspecified Is this a current diagnosis for this admission?: Yes Plan: Currently all improving (2) Urinary tract infection Qualifiers: Urinary tract infection type: site unspecified Hematuria presence: without hematuria Qualified Code(s): N39.0 - Urinary tract infection, site not specified Is this a current diagnosis for this admission?: Yes Plan: Urine cultures grew up ESBL continues to IV antibiotic (3) Pyelonephritis Is this a current diagnosis for this admission?: Yes Plan: Continues IV antibiotic total 10 days (4) Hypertension Qualifiers: Hypertension type: essential hypertension Qualified Code(s): I10 - Essential (primary) hypertension Is this a current diagnosis for this admission?: Yes (5) Hyperlipidemia Qualifiers: Hyperlipidemia type: unspecified Qualified Code(s): E78.5 - Hyperlipidemia, unspecified Is this a current diagnosis for this admission?: Yes (6) Type 2 diabetes mellitus Qualifiers: Diabetes mellitus skilled nursing insulin use: without intermodal dispatcher use Is this a current diagnosis for this admission?: Yes (7) Vomiting Qualifiers: Vomiting type: unspecified Vomiting Intractability: non-intractable Nausea presence: with nausea Qualified Code(s): R11.2 - Nausea with vomiting, unspecified Is this a current diagnosis for this admission?: Yes - Time Time Spent with patient: 15-24 minutes Level of Care: TELE Medications reviewed and adjusted accordingly: Yes Anticipated discharge: Other Anticipated DC Timeframe: within 72 hours - Plan Summary Plan Summary: Continues to current medications
[2020-01-20] MEDS: ERTAPENEM SODIUM 0.5 GM in NORMAL SALINE 50 ML IV SCH (17:28)
--- NOTE | 2020-01-20 21:41 | PDOC PROGRESS REPORT ---
Subjective Progress Note for:: 01/20/20 Subjective:: Patient is doing well and continues to feel better every day. She is producing a very good amount of urine output and for the past 24 hours recorded as 5300 mL. She is drinking fluids and eating orally. Reason For Visit: ACUTE RENAL FAILURE,VOMITING,URINARY TRACT INFECT- Physical Exam Vital Signs: Temp Pulse Resp BP Pulse Ox 98.5 F 71 18 140/77 H 99 01/20/20 00:00 01/20/20 00:00 01/20/20 00:00 01/20/20 00:00 01/20/20 00:00 Intake & Output 01/19/20 01/20/20 01/21/20 06:59 06:59 06:59 Intake Total 4692 4710 Output Total 4150 5300 Balance 542 -590 Weight 94.8 kg 90.9 kg Exam: General appearance: PRESENT: no acute distress, cooperative, well-developed, well-nourished Head exam: PRESENT: atraumatic, normocephalic Eye exam: PRESENT: conjunctiva pink, PERRLA. ABSENT: scleral icterus Neck exam: ABSENT: JVD Respiratory exam: PRESENT: Normal breath sounds. ABSENT: crackles, rales, rhonchi, unlabored, wheezes Cardiovascular exam: PRESENT: Regular rate rhythm -+S1, +S2. ABSENT: diastolic murmur, systolic murmur GI/Abdominal exam: PRESENT: normal bowel sounds, soft. ABSENT: guarding, mass, tenderness Extremities exam: ABSENT: No edema Neurological exam: PRESENT: alert, awake, oriented to person, place and time. Skin exam: PRESENT: dry, warm, Results Laboratory Results: 01/20/20 08:40 01/20/20 08:40 01/20/20 01/20/20 08:40 08:40 WBC 5.0 RBC 3.53 L Hgb 11.2 L Hct 33.3 L MCV 94 MCH 31.8 MCHC 33.8 RDW 13.6 Plt Count 195 Sodium 140.7 Potassium 4.4 Chloride 113 H Carbon Dioxide 21 L Anion Gap 7 BUN 36 H Creatinine 2.88 H Est GFR ( Amer) 20 L Glucose 199 H Calcium 8.2 L Magnesium 1.1 L* 01/16/20 22:35 Clean Catch Midstream Urine Culture - Final Klebsiella Pneumoniae-Esbl Impressions: Abdomen/Pelvis CT 01/17/20 00:00 IMPRESSION: Nonspecific bilateral perinephric stranding. Any clinical symptoms of pyelonephritis? No hydronephrosis. Small nonobstructing left renal calculi. Assessment & Plan - Diagnosis (1) Acute renal failure Qualifiers: Acute renal failure type: unspecified Qualified Code(s): N17.9 - Acute kidney failure, unspecified Is this a current diagnosis for this admission?: Yes Plan: Nonoliguric, secondary to acute prerenal azotemia. I will change her IV fluids to 0.9 normal saline with 20 mEq of potassium at 80 mL an hour. Continue to monitor kidney function. (2) Pyelonephritis Is this a current diagnosis for this admission?: Yes Plan: Urine culture showed Klebsiella pneumoniae, ESBL resistant to IV ceftriaxone. I will change her antibiotics to IV ertapenem 500 mg daily first dose today. (3) Metabolic acidosis Is this a current diagnosis for this admission?: Yes Plan: On sodium bicarbonate. Improving. (4) Vomiting Qualifiers: Vomiting type: unspecified Vomiting Intractability: non-intractable Nausea presence: with nausea Qualified Code(s): R11.2 - Nausea with vomiting, unspecified Is this a current diagnosis for this admission?: Yes Plan: Resolved. (5) Hypocalcemia Is this a current diagnosis for this admission?: Yes Plan: Improving. On calcium supplements. (6) Hypertension Qualifiers: Hypertension type: essential hypertension Qualified Code(s): I10 - Essential (primary) hypertension Is this a current diagnosis for this admission?: Yes Plan: Mostly controlled. (7) Type 2 diabetes mellitus Qualifiers: Diabetes mellitus shelter insulin use: without shelter use Is this a current diagnosis for this admission?: Yes Plan: Controlled. - Time Time with patient: 15-25 minutes
[2020-01-21] MEDS: POTASSI CL 40 MEQ/NS 1L 1,000 ML IV PRN ×2 (00:24→14:44)
[2020-01-21 06:44] LABS: ABSOLUTE BASOPHILS # (AUTO) 0.1 10^3/uL (0.0-0.2); ABSOLUTE EOSINOPHILS # (AUTO) 0.5 10^3/uL (0.0-0.6); ABSOLUTE LYMPHOCYTES (AUTO) 1.9 10^3/uL (0.5-4.7); ABSOLUTE MONOCYTES (AUTO) 0.4 10^3/uL (0.1-1.4); ABSOLUTE NEUT (AUTO) 2.3 10^3/uL (1.7-8.2); BASOPHILS % (AUTO) 2.4 % (0-2); EOSINOPHILS % (AUTO) 10.5 % (0-6); HEMOGLOBIN 11.5 g/dL (12.0-15.5); LYMPHOCYTES % (AUTO) 35.6 % (13-45); MEAN CORPUSCULAR HEMOGLOBIN 31.6 pg (27.0-33.4); MEAN CORPUSCULAR HGB CONC 33.8 g/dL (32.0-36.0); MEAN CORPUSCULAR VOLUME 93 fl (80-97); PLATELET COUNT 210 10^3/uL (150-450); RED BLOOD COUNT 3.65 10^6/uL (3.72-5.28); RED CELL DISTRIBUTION WIDTH 13.9 % (11.5-14.0); SEGMENTED NEUTROPHILS % (AUTO) 44.5 % (42-78); TOTAL CELLS COUNTED % (AUTO) 100 %; WHITE BLOOD COUNT 5.2 10^3/uL (4.0-10.5)
[2020-01-21 07:14] LABS: ANION GAP 5 (5-19); BLOOD UREA NITROGEN 29 mg/dL (7-20); CALCIUM 8.7 mg/dL (8.4-10.2); CARBON DIOXIDE 24 mmol/L (22-30); CHLORIDE 112 mmol/L (98-107); GLUCOSE 122 mg/dL (75-110); POTASSIUM 4.2 mmol/L (3.6-5.0)
[2020-01-21] MEDS: INSULIN LISPRO 100 UNIT/ML 3 ML VIAL SUBCUT SCH ×4 (07:30→22:04)
[2020-01-21] MEDS: CALCIUM CARBONATE 600 MG TABLET PO SCH ×2 (08:11→17:50)
[2020-01-21] MEDS ORDERED: MAGNESIUM SULFATE/D5W 1 GM/100 ML RTUPB IV ONE (08:30)
--- NOTE | 2020-01-21 11:45 | PDOC PROGRESS REPORT ---
Subjective Progress Note for:: 01/21/20 Subjective:: Patient is currently doing much better Patient's creatinine is all improving Patient's denied any chest pain no short of breath Urine cultures grew up ESBL require probably 10 days antibiotic IV if the patient is remained stable through the weekend will discharge in a Friday with arrange the outpatient antibiotic IV Reason For Visit: ACUTE RENAL FAILURE,VOMITING,URINARY TRACT INFECT- Physical Exam Vital Signs: Temp Pulse Resp BP Pulse Ox 98.1 F 66 12 149/83 H 98 01/21/20 07:54 01/21/20 07:54 01/21/20 07:54 01/21/20 07:54 01/21/20 07:54 Intake & Output 01/20/20 01/21/20 01/22/20 06:59 06:59 06:59 Intake Total 4710 1865 220 Output Total 5300 1000 1500 Balance -590 865 -1280 Weight 90.9 kg 90.9 kg General appearance: PRESENT: no acute distress, well-developed, well-nourished Head exam: PRESENT: atraumatic, normocephalic Eye exam: PRESENT: conjunctiva pink, EOMI, PERRLA. ABSENT: scleral icterus Ear exam: PRESENT: normal external ear exam Mouth exam: PRESENT: moist, tongue midline Neck exam: PRESENT: full ROM. ABSENT: carotid bruit, JVD, lymphadenopathy, thyromegaly Respiratory exam: PRESENT: clear to auscultation maura Cardiovascular exam: PRESENT: RRR. ABSENT: diastolic murmur, rubs, systolic murmur Pulses: PRESENT: normal dorsalis pedis pul, +2 pedal pulses bilateral Vascular exam: PRESENT: normal capillary refill GI/Abdominal exam: PRESENT: normal bowel sounds, soft. ABSENT: distended, guarding, mass, organolmegaly, rebound, tenderness Rectal exam: PRESENT: deferred Musculoskeletal exam: PRESENT: ambulatory Neurological exam: PRESENT: alert, awake, oriented to person, oriented to place, oriented to time, oriented to situation, CN II-XII grossly intact. ABSENT: motor sensory deficit Psychiatric exam: PRESENT: appropriate affect, normal mood. ABSENT: homicidal ideation, suicidal ideation Skin exam: PRESENT: dry, intact, warm. ABSENT: cyanosis, rash Results Laboratory Results: 01/21/20 05:40 01/21/20 05:40 01/21/20 01/21/20 05:40 05:40 WBC 5.2 RBC 3.65 L Hgb 11.5 L Hct 34.0 L MCV 93 MCH 31.6 MCHC 33.8 RDW 13.9 Plt Count 210 Seg Neutrophils % 44.5 Sodium 141.4 Potassium 4.2 Chloride 112 H Carbon Dioxide 24 Anion Gap 5 BUN 29 H Creatinine 2.13 H Est GFR ( Amer) 28 L Glucose 122 H Calcium 8.7 Magnesium 1.5 L Impressions: Abdomen/Pelvis CT 01/17/20 00:00 IMPRESSION: Nonspecific bilateral perinephric stranding. Any clinical symptoms of pyelonephritis? No hydronephrosis. Small nonobstructing left renal calculi. Assessment & Plan - Diagnosis (1) Acute renal failure Qualifiers: Acute renal failure type: unspecified Qualified Code(s): N17.9 - Acute kidney failure, unspecified Is this a current diagnosis for this admission?: Yes Plan: Currently all improving (2) Urinary tract infection Qualifiers: Urinary tract infection type: site unspecified Hematuria presence: without hematuria Qualified Code(s): N39.0 - Urinary tract infection, site not specified Is this a current diagnosis for this admission?: Yes Plan: Urine cultures grew up ESBL continues to IV antibiotic (3) Pyelonephritis Is this a current diagnosis for this admission?: Yes Plan: Continues IV antibiotic (4) Hypertension Qualifiers: Hypertension type: essential hypertension Qualified Code(s): I10 - Essential (primary) hypertension Is this a current diagnosis for this admission?: Yes (5) Hyperlipidemia Qualifiers: Hyperlipidemia type: unspecified Qualified Code(s): E78.5 - Hyperlipidemia, unspecified Is this a current diagnosis for this admission?: Yes (6) Type 2 diabetes mellitus Qualifiers: Diabetes mellitus long-term insulin use: without parts counterman use Is this a current diagnosis for this admission?: Yes (7) Vomiting Qualifiers: Vomiting type: unspecified Vomiting Intractability: non-intractable Nausea presence: with nausea Qualified Code(s): R11.2 - Nausea with vomiting, unspecified Is this a current diagnosis for this admission?: Yes Plan: Currently all resolved - Time Time Spent with patient: 15-24 minutes Level of Care: IMCU Medications reviewed and adjusted accordingly: Yes Anticipated discharge: Other Anticipated DC Timeframe: Other - Plan Summary Plan Summary: Continues to current medications
[2020-01-21] MEDS: ERTAPENEM SODIUM 0.5 GM in NORMAL SALINE 50 ML IV SCH (17:50)
--- NOTE | 2020-01-21 21:45 | PDOC PROGRESS REPORT ---
Subjective Progress Note for:: 01/21/20 Subjective:: Patient continues to do well. She has adequate urine output. She reports that she feels much better and has no new complaints. Reason For Visit: ACUTE RENAL FAILURE,VOMITING,URINARY TRACT INFECT- Physical Exam Vital Signs: Temp Pulse Resp BP Pulse Ox 98.1 F 66 12 149/83 H 98 01/21/20 07:54 01/21/20 07:54 01/21/20 07:54 01/21/20 07:54 01/21/20 07:54 Intake & Output 01/20/20 01/21/20 01/22/20 06:59 06:59 06:59 Intake Total 4710 1865 120 Output Total 5300 1000 1500 Balance -590 865 -1380 Weight 90.9 kg 90.9 kg Exam: General appearance: PRESENT: no acute distress, cooperative, well-developed, well-nourished Head exam: PRESENT: atraumatic, normocephalic Eye exam: PRESENT: conjunctiva pink, PERRLA. ABSENT: scleral icterus Neck exam: ABSENT: JVD Respiratory exam: PRESENT: Normal breath sounds. ABSENT: crackles, rales, rhonchi, unlabored, wheezes Cardiovascular exam: PRESENT: Regular rate rhythm -+S1, +S2. ABSENT: diastolic murmur, systolic murmur GI/Abdominal exam: PRESENT: normal bowel sounds, soft. ABSENT: guarding, mass, tenderness Extremities exam: ABSENT: No edema Neurological exam: PRESENT: alert, awake, oriented to person, place and time. Skin exam: PRESENT: dry, warm, Results Laboratory Results: 01/21/20 05:40 01/21/20 05:40 01/21/20 01/21/20 05:40 05:40 WBC 5.2 RBC 3.65 L Hgb 11.5 L Hct 34.0 L MCV 93 MCH 31.6 MCHC 33.8 RDW 13.9 Plt Count 210 Seg Neutrophils % 44.5 Sodium 141.4 Potassium 4.2 Chloride 112 H Carbon Dioxide 24 Anion Gap 5 BUN 29 H Creatinine 2.13 H Est GFR ( Amer) 28 L Glucose 122 H Calcium 8.7 Magnesium 1.5 L Impressions: Abdomen/Pelvis CT 01/17/20 00:00 IMPRESSION: Nonspecific bilateral perinephric stranding. Any clinical symptoms of pyelonephritis? No hydronephrosis. Small nonobstructing left renal calculi. Assessment & Plan - Diagnosis (1) Acute renal failure Qualifiers: Acute renal failure type: unspecified Qualified Code(s): N17.9 - Acute kidney failure, unspecified Is this a current diagnosis for this admission?: Yes Plan: Nonoliguric, secondary to acute prerenal azotemia. Kidney function continues to improve every day with management. Continue now maintenance IV fluids only. Expect the patient's kidney function will back to her normal baseline in a couple of days. (2) Pyelonephritis Is this a current diagnosis for this admission?: Yes Plan: Urine culture showed Klebsiella pneumoniae, ESBL resistant to IV ceftriaxone. On IV ertapenem 500 mg daily. Once kidney function improved to EGFR greater than 30% or better, may increase ertapenem dose to 1 g daily. (3) Metabolic acidosis Is this a current diagnosis for this admission?: Yes Plan: Resolved. Discontinue oral sodium bicarbonate. (4) Vomiting Qualifiers: Vomiting type: unspecified Vomiting Intractability: non-intractable Nausea presence: with nausea Qualified Code(s): R11.2 - Nausea with vomiting, unspecified Is this a current diagnosis for this admission?: Yes Plan: Resolved. (5) Hypocalcemia Is this a current diagnosis for this admission?: Yes Plan: Improving. On calcium supplements. (6) Hypertension Qualifiers: Hypertension type: essential hypertension Qualified Code(s): I10 - Essential (primary) hypertension Is this a current diagnosis for this admission?: Yes Plan: Mostly controlled. (7) Type 2 diabetes mellitus Qualifiers: Diabetes mellitus usp insulin use: without usp use Is this a current diagnosis for this admission?: Yes Plan: Controlled. - Notes Notes: I expect patient's kidney function and overall clinical condition to improve from this point. I will sign off at this time - Time Time with patient: 15-25 minutes
[2020-01-21] MEDS: AMLODIPINE BESYLATE 2.5 MG TABLET PO SCH (22:03)
[2020-01-22] MEDS: POTASSI CL 40 MEQ/NS 1L 1,000 ML IV PRN ×2 (03:41→20:43)
[2020-01-22 06:52] LABS: ANION GAP 8 (5-19); BLOOD UREA NITROGEN 25 mg/dL (7-20); CALCIUM 8.9 mg/dL (8.4-10.2); CARBON DIOXIDE 22 mmol/L (22-30); CHLORIDE 111 mmol/L (98-107); GLUCOSE 122 mg/dL (75-110); POTASSIUM 4.1 mmol/L (3.6-5.0)
[2020-01-22] MEDS: INSULIN LISPRO 100 UNIT/ML 3 ML VIAL SUBCUT SCH ×4 (07:28→22:07)
[2020-01-22] MEDS: CALCIUM CARBONATE 600 MG TABLET PO SCH ×2 (08:01→17:07)
[2020-01-22] MEDS: AMLODIPINE BESYLATE 2.5 MG TABLET PO SCH ×2 (09:24→22:06)
--- NOTE | 2020-01-22 11:47 | PDOC PROGRESS REPORT ---
Subjective Progress Note for:: 01/22/20 Subjective:: Patient is currently doing much better Denied any chest pain no short of breath Patient is out of the bed to walk Patient's kidney function is also improving Reason For Visit: ACUTE RENAL FAILURE,VOMITING,URINARY TRACT INFECT- Physical Exam Vital Signs: Temp Pulse Resp BP Pulse Ox 97.8 F 57 L 18 153/70 H 100 01/22/20 09:12 01/22/20 09:12 01/22/20 09:12 01/22/20 09:12 01/22/20 09:12 Intake & Output 01/21/20 01/22/20 01/23/20 06:59 06:59 06:59 Intake Total 1865 2630 Output Total 1000 4800 Balance 865 -2170 Weight 90.9 kg 90.9 kg General appearance: PRESENT: no acute distress, well-developed, well-nourished Head exam: PRESENT: atraumatic, normocephalic Eye exam: PRESENT: conjunctiva pink, EOMI, PERRLA. ABSENT: scleral icterus Ear exam: PRESENT: normal external ear exam Mouth exam: PRESENT: moist, tongue midline Neck exam: PRESENT: full ROM. ABSENT: carotid bruit, JVD, lymphadenopathy, thyromegaly Respiratory exam: PRESENT: clear to auscultation maura Cardiovascular exam: PRESENT: RRR. ABSENT: diastolic murmur, rubs, systolic murmur Pulses: PRESENT: normal dorsalis pedis pul, +2 pedal pulses bilateral Vascular exam: PRESENT: normal capillary refill GI/Abdominal exam: PRESENT: normal bowel sounds, soft. ABSENT: distended, guarding, mass, organolmegaly, rebound, tenderness Rectal exam: PRESENT: deferred Musculoskeletal exam: PRESENT: ambulatory Neurological exam: PRESENT: alert, awake, oriented to person, oriented to place, oriented to time, oriented to situation, CN II-XII grossly intact. ABSENT: motor sensory deficit Psychiatric exam: PRESENT: appropriate affect, normal mood. ABSENT: homicidal ideation, suicidal ideation Skin exam: PRESENT: dry, intact, warm. ABSENT: cyanosis, rash Results Laboratory Results: 01/21/20 05:40 01/22/20 05:45 01/22/20 05:45 Sodium 140.5 Potassium 4.1 Chloride 111 H Carbon Dioxide 22 Anion Gap 8 BUN 25 H Creatinine 1.78 H Est GFR ( Amer) 35 L Glucose 122 H Calcium 8.9 Impressions: Abdomen/Pelvis CT 01/17/20 00:00 IMPRESSION: Nonspecific bilateral perinephric stranding. Any clinical symptoms of pyelonephritis? No hydronephrosis. Small nonobstructing left renal calculi. Assessment & Plan - Diagnosis (1) Acute renal failure Qualifiers: Acute renal failure type: unspecified Qualified Code(s): N17.9 - Acute k idney failure, unspecified Is this a current diagnosis for this admission?: Yes (2) Urinary tract infection Qualifiers: Urinary tract infection type: site unspecified Hematuria presence: without hematuria Qualified Code(s): N39.0 - Urinary tract infection, site not specif ied Is this a current diagnosis for this admission?: Yes (3) Pyelonephritis Is this a current diagnosis for this admission?: Yes (4) Hypertension Qualifiers: Hypertension type: essential hypertension Qualified Code(s): I10 - Essential (primary) hypertension Is this a current diagnosis for this admission?: Yes (5) Hyperlipidemia Qualifiers: Hyperlipidemia type: unspecified Qualified Code(s): E78.5 - Hyperlipidemia, unspecified Is this a current diagnosis for this admission?: Yes (6) Type 2 diabetes mellitus Qualifiers: Diabetes mellitus terminal superintendent insulin use: without terminal superintendent use Is this a current diagnosis for this admission?: Yes (7) Vomiting Qualifiers: Vomiting type: unspecified Vomiting Intractability: non-intractable Nausea presence: with nausea Qualified Code(s): R11.2 - Nausea with vomiting, unspecified Is this a current diagnosis for this admission?: Yes - Time Time Spent with patient: 15-24 minutes Level of Care: IMCU Medications reviewed and adjusted accordingly: Yes Anticipated discharge: Home Anticipated DC Timeframe: Other - Plan Summary Plan Summary: Continues to current medications
[2020-01-22] MEDS: ERTAPENEM SODIUM 0.5 GM in NORMAL SALINE 50 ML IV SCH (17:07)
[2020-01-23 07:18] LABS: ABSOLUTE BASOPHILS # (AUTO) 0.1 10^3/uL (0.0-0.2); ABSOLUTE EOSINOPHILS # (AUTO) 0.5 10^3/uL (0.0-0.6); ABSOLUTE MONOCYTES (AUTO) 0.3 10^3/uL (0.1-1.4); ABSOLUTE NEUT (AUTO) 2.8 10^3/uL (1.7-8.2); BASOPHILS % (AUTO) 1.5 % (0-2); EOSINOPHILS % (AUTO) 9.4 % (0-6); HEMOGLOBIN 11.2 g/dL (12.0-15.5); LYMPHOCYTES % (AUTO) 34.8 % (13-45); MEAN CORPUSCULAR HEMOGLOBIN 31.8 pg (27.0-33.4); MEAN CORPUSCULAR HGB CONC 34.1 g/dL (32.0-36.0); MEAN CORPUSCULAR VOLUME 93 fl (80-97); PLATELET COUNT 223 10^3/uL (150-450); RED BLOOD COUNT 3.54 10^6/uL (3.72-5.28); RED CELL DISTRIBUTION WIDTH 13.7 % (11.5-14.0); SEGMENTED NEUTROPHILS % (AUTO) 48.3 % (42-78); TOTAL CELLS COUNTED % (AUTO) 100 %; WHITE BLOOD COUNT 5.7 10^3/uL (4.0-10.5)
[2020-01-23 07:42] LABS: ANION GAP 9 (5-19); BLOOD UREA NITROGEN 23 mg/dL (7-20); CALCIUM 9.1 mg/dL (8.4-10.2); CARBON DIOXIDE 22 mmol/L (22-30); CHLORIDE 109 mmol/L (98-107); GLUCOSE 107 mg/dL (75-110); POTASSIUM 4.2 mmol/L (3.6-5.0)
[2020-01-23] MEDS: INSULIN LISPRO 100 UNIT/ML 3 ML VIAL SUBCUT SCH ×4 (08:08→21:51)
[2020-01-23] MEDS: CALCIUM CARBONATE 600 MG TABLET PO SCH ×2 (08:29→17:01)
[2020-01-23] MEDS: AMLODIPINE BESYLATE 2.5 MG TABLET PO SCH (09:33)
--- NOTE | 2020-01-23 10:47 | PDOC PROGRESS REPORT ---
Subjective Progress Note for:: 01/23/20 Subjective:: Patient is currently doing much better Denied any chest pain no short of breath Patient is out of the bed to walk Patient's kidney function is also improving Reason For Visit: ACUTE RENAL FAILURE,VOMITING,URINARY TRACT INFECT- Physical Exam Vital Signs: Temp Pulse Resp BP Pulse Ox 98.4 F 68 16 174/84 H 99 01/23/20 07:29 01/23/20 07:29 01/23/20 07:29 01/23/20 07:29 01/23/20 07:29 Intake & Output 01/22/20 01/23/20 01/24/20 06:59 06:59 06:59 Intake Total 2630 1940 Output Total 4800 3300 Balance -2170 -1360 Weight 90.9 kg 96.2 kg General appearance: PRESENT: no acute distress, well-developed, well-nourished Head exam: PRESENT: atraumatic, normocephalic Eye exam: PRESENT: conjunctiva pink, EOMI, PERRLA. ABSENT: scleral icterus Ear exam: PRESENT: normal external ear exam Mouth exam: PRESENT: moist, tongue midline Neck exam: PRESENT: full ROM. ABSENT: carotid bruit, JVD, lymphadenopathy, thyromegaly Respiratory exam: PRESENT: clear to auscultation maura Cardiovascular exam: PRESENT: RRR. ABSENT: diastolic murmur, rubs, systolic murmur Pulses: PRESENT: normal dorsalis pedis pul, +2 pedal pulses bilateral Vascular exam: PRESENT: normal capillary refill GI/Abdominal exam: PRESENT: normal bowel sounds, soft. ABSENT: distended, guarding, mass, organolmegaly, rebound, tenderness Rectal exam: PRESENT: deferred Musculoskeletal exam: PRESENT: ambulatory Neurological exam: PRESENT: alert, awake, oriented to person, oriented to place, oriented to time, oriented to situation, CN II-XII grossly intact. ABSENT: motor sensory deficit Psychiatric exam: PRESENT: appropriate affect, normal mood. ABSENT: homicidal ideation, suicidal ideation Skin exam: PRESENT: dry, intact, warm. ABSENT: cyanosis, rash Results Laboratory Results: 01/23/20 06:42 01/23/20 06:42 01/23/20 01/23/20 06:42 06:42 WBC 5.7 RBC 3.54 L Hgb 11.2 L Hct 33.0 L MCV 93 MCH 31.8 MCHC 34.1 RDW 13.7 Plt Count 223 Seg Neutrophils % 48.3 Sodium 140.2 Potassium 4.2 Chloride 109 H Carbon Dioxide 22 Anion Gap 9 BUN 23 H Creatinine 1.51 H Est GFR ( Amer) 42 L Glucose 107 Calcium 9.1 Magnesium 1.4 L Impressions: Abdomen/Pelvis CT 01/17/20 00:00 IMPRESSION: Nonspecific bilateral perinephric stranding. Any clinical symptoms of pyelonephritis? No hydronephrosis. Small nonobstructing left renal calculi. Assessment & Plan - Diagnosis (1) Acute renal failure Qualifiers: Acute renal failure type: unspecified Qualified Code(s): N17.9 - Acute kidney failure, unspecified Is this a current diagnosis for this admission?: Yes (2) Urinary tract infection Qualifiers: Urinary tract infection type: site unspecified Hematuria presence: without hematuria Qualified Code(s): N39.0 - Urinary tract infection, site not specified Is this a current diagnosis for this admission?: Yes (3) Pyelonephritis Is this a current diagnosis for this admission?: Yes (4) Hypertension Qualifiers: Hypertension type: essential hypertension Qualified Code(s): I10 - Essential (primary) hypertension Is this a current diagnosis for this admission?: Yes (5) Hyperlipidemia Qualifiers: Hyperlipidemia type: unspecified Qualified Code(s): E78.5 - Hyperlipidemia, unspecified Is this a current diagnosis for this admission?: Yes (6) Type 2 diabetes mellitus Qualifiers: Diabetes mellitus penitentiary insulin use: without exterminator helper use Is this a current diagnosis for this admission?: Yes (7) Vomiting Qualifiers: Vomiting type: unspecified Vomiting Intractability: non-intractable Nausea presence: with nausea Qualified Code(s): R11.2 - Nausea with vomiting, unspecified Is this a current diagnosis for this admission?: Yes - Time Time Spent with patient: 15-24 minutes Level of Care: IMCU Medications reviewed and adjusted accordingly: Yes Anticipated discharge: Other Anticipated DC Timeframe: Other - Plan Summary Plan Summary: Continues to current medications
[2020-01-23] MEDS ORDERED: MAGNESIUM SULFATE/D5W 1 GM/100 ML RTUPB IV ONE (12:00)
[2020-01-23] MEDS: ERTAPENEM SODIUM 0.5 GM in NORMAL SALINE 50 ML IV SCH (17:01)
[2020-01-23] MEDS: POTASSI CL 40 MEQ/NS 1L 1,000 ML IV PRN (17:02)
[2020-01-23] MEDS: AMLODIPINE BESYLATE 5 MG TABLET PO SCH (21:52)
[2020-01-23] MEDS ORDERED: AMLODIPINE BESYLATE 2.5 MG TABLET PO SCH (22:00)
[2020-01-24 05:27] LABS: ANION GAP 9 (5-19); BLOOD UREA NITROGEN 21 mg/dL (7-20); CALCIUM 8.6 mg/dL (8.4-10.2); CARBON DIOXIDE 25 mmol/L (22-30); CHLORIDE 106 mmol/L (98-107); GLUCOSE 106 mg/dL (75-110); POTASSIUM 3.8 mmol/L (3.6-5.0)
[2020-01-24] MEDS: INSULIN LISPRO 100 UNIT/ML 3 ML VIAL SUBCUT SCH ×2 (07:32→11:44)
[2020-01-24] MEDS: CALCIUM CARBONATE 600 MG TABLET PO SCH (08:30)
--- NOTE | 2020-01-24 09:46 | PDOC DISCHARGE SUMMARY ---
Impression - Admit/DC Date/PCP Admission Date/Primary Care Provider: 01/16/20 23:19 YSABEL FREY MD Discharge Date: 01/24/20 - Discharge Diagnosis (1) Acute renal failure Is this a current diagnosis for this admission?: Yes (2) Urinary tract infection Is this a current diagnosis for this admission?: Yes (3) Pyelonephritis Is this a current diagnosis for this admission?: Yes (4) Hypertension Is this a current diagnosis for this admission?: Yes (5) Hyperlipidemia Is this a current diagnosis for this admission?: Yes (6) Type 2 diabetes mellitus Is this a current diagnosis for this admission?: Yes (7) Vomiting Is this a current diagnosis for this admission?: Yes - Additional Information Discharge Diet: Diabetic Discharge Activity: Activity As Tolerated Referrals: LILA RED MD [ACTIVE STAFF] - (office will be calling pt with an appt) YSABEL FREY MD [Primary Care Provider] - 01/27/20 11:15 am (f/u dr sterling make appt f/u in offce 1 wk ) Prescriptions: Glipizide [Glipizide Xl] 2.5 mg PO DAILY #30 tab.er.24 Ertapenem Sodium [Invanz Inj 1 gm Vial] 1 gm IV QPM #6 vial Amlodipine Besylate [Norvasc 5 mg Tablet] 5 mg PO Q12 #60 tablet Home Medications: Aspirin [Aspirin 81 mg Chewable Tablet] 81 mg PO DAILY 05/23/17 Allopurinol [Zyloprim 300 mg Tablet] 300 mg PO DAILY 01/17/20 Multivitamin [Multiple Vitamins] 1 tab PO DAILY 01/17/20 Amlodipine Besylate [Norvasc 5 mg Tablet] 5 mg PO Q12 #60 tablet 01/24/20 Ertapenem Sodium [Invanz Inj 1 gm Vial] 1 gm IV QPM #6 vial 01/24/20 Glipizide [Glipizide Xl] 2.5 mg PO DAILY #30 tab.er.24 01/24/20 History of Present Illiness History of Present Illness: AGUILAR DU is a 64 year old female Is a 64-year-old female's with a history of the hypertension hyperlipidemia type 2 diabetes and a history of the kidney stone status post stent placement in the past came to the emergency department with a complaint of "not feeling well nausea vomiting and feeling tired and patient's BUN was 73 creatinine was 12.4 Patient have a blood work done last week in the office with the BUN is 15 and creatinine is about 1.0 Also have a recently urinary tract infection started on Cipro Patient's otherwise A1c is 7.4 and other blood work was all stable Denied any abdominal pain History of the ovarian cancer status post surgery so many years back Patient seen by the urology in [place] last year for the kidney stone status post stent placement in the past currently no stent Patient's admitting in the hospital start on IV fluid currently feels better patient CT scan of the abdomen and pelvis suggest questionable pyelonephritis Hospital Course Hospital Course: There is a 64-year-old female presenting the emergency department with nausea vomiting and patients diagnosed With the acute renal failure and pyelonephritis and UTI Patient seen by the nephrology and suggest the continues to IV fluid which improved the patient's kidney function back to the baseline Patient urine cultures grew out the ESBL which treated with the IV Invanz for total 10 days patient received a 5-day course in the hospital and outpatient schedule another more [address] scan was all stable According to the body design checker patient just finished antibiotics and continues to monitor patient also see urology at [place] Is Diovan and metformin currently hold start the patient on a norvasc For blood pressure and glipizide 2.5 mg Once the patient's finished antibiotic back to the baseline we will restart the patient's Diovan and restart the metformin Discussed with the patient's extensively regarding the all the test report discussed with the nephrology Physical Exam Vital Signs: Temp Pulse Resp BP Pulse Ox 98.0 F 63 18 151/66 H 96 01/23/20 23:34 01/23/20 23:34 01/23/20 23:34 01/23/20 23:34 01/23/20 23:34 Intake & Output 01/23/20 01/24/20 01/25/20 06:59 06:59 06:59 Intake Total 1940 2464 Output Total 3300 4300 Balance -1360 -1836 Weight 96.2 kg 94.7 kg General appearance: PRESENT: no acute distress, well-developed, well-nourished Head exam: PRESENT: atraumatic, normocephalic Eye exam: PRESENT: conjunctiva pink, EOMI, PERRLA. ABSENT: scleral icterus Ear exam: PRESENT: normal external ear exam Mouth exam: PRESENT: moist, tongue midline Neck exam: ABSENT: carotid bruit, JVD, lymphadenopathy, thyromegaly Respiratory exam: PRESENT: clear to auscultation maura. ABSENT: rales, rhonchi, wheezes Cardiovascular exam: PRESENT: RRR. ABSENT: diastolic murmur, rubs, systolic murmur Pulses: PRESENT: normal dorsalis pedis pul Vascular exam: PRESENT: normal capillary refill GI/Abdominal exam: PRESENT: normal bowel sounds, soft. ABSENT: distended, guarding, mass, organolmegaly, rebound, tenderness Rectal exam: PRESENT: deferred Extremities exam: PRESENT: full ROM. ABSENT: calf tenderness, clubbing, pedal edema Musculoskeletal exam: PRESENT: ambulatory Neurological exam: PRESENT: alert, awake, oriented to person, oriented to place, oriented to time, oriented to situation, CN II-XII grossly intact. ABSENT: motor sensory deficit Psychiatric exam: PRESENT: appropriate affect, normal mood. ABSENT: homicidal ideation, suicidal ideation Skin exam: PRESENT: dry, intact, warm. ABSENT: cyanosis, rash Results Laboratory Results: WBC 5.7 10^3/uL (4.0-10.5) 01/23/20 06:42 RBC 3.54 10^6/uL (3.72-5.28) L 01/23/20 06:42 Hgb 11.2 g/dL (12.0-15.5) L 01/23/20 06:42 Hct 33.0 % (36.0-47.0) L 01/23/20 06:42 MCV 93 fl (80-97) 01/23/20 06:42 MCH 31.8 pg (27.0-33.4) 01/23/20 06:42 MCHC 34.1 g/dL (32.0-36.0) 01/23/20 06:42 RDW 13.7 % (11.5-14.0) 01/23/20 06:42 Plt Count 223 10^3/uL (150-450) 01/23/20 06:42 Lymph % (Auto) 34.8 % (13-45) 01/23/20 06:42 Kenedy % (Auto) 6.0 % (3-13) 01/23/20 06:42 Eos % (Auto) 9.4 % (0-6) H 01/23/20 06:42 Baso % (Auto) 1.5 % (0-2) 01/23/20 06:42 Absolute Neuts (auto) 2.8 10^3/uL (1.7-8.2) 01/23/20 06:42 Absolute Lymphs (auto) 2.0 10^3/uL (0.5-4.7) 01/23/20 06:42 Absolute Monos (auto) 0.3 10^3/uL (0.1-1.4) 01/23/20 06:42 Absolute Eos (auto) 0.5 10^3/uL (0.0-0.6) 01/23/20 06:42 Absolute Basos (auto) 0.1 10^3/uL (0.0-0.2) 01/23/20 06:42 Seg Neutrophils % 48.3 % (42-78) 01/23/20 06:42 Sodium 139.8 mmol/L (137-145) 01/24/20 04:44 Potassium 3.8 mmol/L (3.6-5.0) 01/24/20 04:44 Chloride 106 mmol/L (98-107) 01/24/20 04:44 Carbon Dioxide 25 mmol/L (22-30) 01/24/20 04:44 Anion Gap 9 (5-19) 01/24/20 04:44 BUN 21 mg/dL (7-20) H 01/24/20 04:44 Creatinine 1.21 mg/dL (0.52-1.25) 01/24/20 04:44 Est GFR ( Amer) 55 (>60) L 01/24/20 04:44 Est GFR (Non-Af Amer) Cancelled 01/17/20 07:00 Est GFR (MDRD) Non-Af 45 (>60) L 01/24/20 04:44 Glucose 106 mg/dL (75-110) 01/24/20 04:44 POC Glucose 107 mg/dL (70-110) 01/24/20 06:02 Calcium 8.6 mg/dL (8.4-10.2) 01/24/20 04:44 Magnesium 1.4 mg/dL (1.6-2.3) L 01/23/20 06:42 Total Bilirubin 1.1 mg/dL (0.2-1.3) 01/16/20 21:50 Direct Bilirubin 0.2 mg/dL (0.0-0.4) 01/16/20 21:50 Neonat Total Bilirubin Not Reportable 01/16/20 21:50 Neonat Direct Bilirubin Not Reportable 01/16/20 21:50 Neonat Indirect Bili Not Reportable 01/16/20 21:50 AST 37 U/L (14-36) H 01/16/20 21:50 ALT 32 U/L (<35) 01/16/20 21:50 Alkaline Phosphatase 58 U/L (38-126) 01/16/20 21:50 Total Protein 7.1 g/dL (6.3-8.2) 01/16/20 21:50 Albumin 4.1 g/dL (3.5-5.0) 01/16/20 21:50 Lipase 190.7 U/L (23-300) 01/16/20 21:50 EGFR Cancelled 01/17/20 07:00 Urine Color YELLOW 01/16/20 22:35 Urine Appearance CLOUDY 01/16/20 22:35 Urine pH 6.0 (5.0-9.0) 01/16/20 22:35 Ur Specific [place] 1.009 01/16/20 22:35 Urine Protein 30 mg/dL (NEGATIVE) H 01/16/20 22:35 Urine Glucose (UA) NEGATIVE mg/dL (NEGATIVE) 01/16/20 22:35 Urine Ketones NEGATIVE mg/dL (NEGATIVE) 01/16/20 22:35 Urine Blood SMALL (NEGATIVE) H 01/16/20 22:35 Urine Nitrite NEGATIVE (NEGATIVE) 01/16/20 22:35 Urine Bilirubin NEGATIVE (NEGATIVE) 01/16/20 22:35 Urine Urobilinogen NEGATIVE mg/dL (<2.0) 01/16/20 22:35 Ur Leukocyte Esterase LARGE (NEGATIVE) H 01/16/20 22:35 Urine WBC (Auto) >182 /HPF 01/16/20 22:35 Urine RBC (Auto) 10 /HPF 01/16/20 22:35 Urine Bacteria (Auto) 3+ /HPF 01/16/20 22:35 Urine WBC Clumps FEW /HPF 01/16/20 22:35 Squamous Epi Cells Auto 13 /HPF 01/16/20 22:35 Urine Mucus (Auto) RARE /LPF 01/16/20 22:35 Urine Ascorbic Acid NEGATIVE (NEGATIVE) 01/16/20 22:35 Impressions: Abdomen/Pelvis CT 01/17/20 00:00 IMPRESSION: Nonspecific bilateral perinephric stranding. Any clinical symptoms of pyelonephritis? No hydronephrosis. Small nonobstructing left renal calculi. Plan Time Spent: Greater than 30 Minutes - Follow outpatient 1 week Repeat the CBC and Chem-7 in 1 week Stroke Is this a Stroke Patient?: No Acute Heart Failure - Is this a Heart Failure Patient?: No
[2020-01-24] MEDS: AMLODIPINE BESYLATE 5 MG TABLET PO SCH (11:45)
[2020-01-24 13:35] VITALS: BP 133/68
== END 2020-01-24 14:34 | disposition home or self-care (01) | DRG 683 ==
LOC: ER 19:00 → EH 23:19 → 4N 01-17 01:05
PROVIDERS: ADMIT Family Medicine; ATTEND Family Medicine
DX: N17.9 Acute kidney failure, unspecified (principal); N39.0 Urinary tract infection, site not specified; E87.2 Acidosis; Z16.12 Extended spectrum beta lactamase (ESBL) resistance; I10 Essential (primary) hypertension; E11.9 Type 2 diabetes mellitus without complications; N12 Tubulo-interstitial nephritis, not specified as acute or chronic; B96.1 Klebsiella pneumoniae [K. pneumoniae] as the cause of diseases classified elsewhere; E78.5 Hyperlipidemia, unspecified; N20.0 Calculus of kidney; E83.51 Hypocalcemia; Z79.84 Long term (current) use of oral hypoglycemic drugs; Z79.82 Long term (current) use of aspirin; Z79.899 Other long term (current) drug therapy; Z85.43 Personal history of malignant neoplasm of ovary; Z85.828 Personal history of other malignant neoplasm of skin
CPT/HCPCS: 36415; 74176; 80048; 80053; 81001; 82962; 83690; 83735; 85025; 85027; 87086; 87088; 87186; 96361; 96374; 99285; J0610; J0696; J1335; J1815; J2765; J3475; J3480; J3490; J7030

== ENCOUNTER → 2020-03-03 | Outpatient (CLI) | payer BC ==
--- NOTE | 2020-03-03 17:07 | WOMENS IMAGING REPORT ---
EXAM DESCRIPTION: 3D SCREENING MAMMO BILAT IMAGES COMPLETED DATE/TIME: 03/03/2020 11:52 am REASON FOR STUDY: ROUTINE SCREENING MAMMOGRAM Z12.31 Z12.31 ENCNTR SCREEN MAMMOGRAM FOR MALIGNANT N EOPLASM OF VERA COMPARISON: Multiple since 2013 EXAM PARAMETERS: Views: Standard craniocaudal and mediolateral oblique views of each breast recorded using digital acquisition and breast tomosynthesis. Read with the assistance of CAD. .[facility] - [employer] Version 9.2 LIMITATIONS: None. FINDINGS: No suspicious masses, suspicious calcifications or architectural distortion. No areas of c oncern. IMPRESSION: NEGATIVE MAMMOGRAM. BIRADS 1. BREAST DENSITY: b. There are scattered areas of fibroglandular density. BIRAD: ASSESSMENT: 1 NEGATIVE RECOMMENDATION: ROUTINE SCREENING Please continue yearly bilateral screening mammography/tomosynthesis in February 2021 COMMENT: The patient has been notified of the results by letter per MQSA requirements. Additional no tification policies are in place for contacting patient with suspicious or incomplete findings. Quality ID #[id number]: The [employer] recommends an annual screening mammogram for women aged 40 years or over. This facility utilizes a reminder system to ensure that all patients receive reminder letters, and/or direct phone calls for appointments. This includes reminders for routine scr eening mammograms, diagnostic mammograms, or other Breast Imaging Interventions when appropriate. Th is patient will be placed in the appropriate reminder system. TECHNICAL DOCUMENTATION: FINDING NUMBER: (1) ASSESSMENT: (1) JOB ID: [id number] 2010 [employer]- All Rights Reserved Reading location - IP/workstation name: [email or web address]
== END ==
LOC: WI 11:24
PROVIDERS: ATTEND Specialist
DX: Z12.31 Encounter for screening mammogram for malignant neoplasm of breast (principal)
CPT/HCPCS: 77063; 77067